=== PATIENT | female | born 1940 | race Caucasian/White ===

== ENCOUNTER 2018-02-13 18:43 | Inpatient (IN) ==
--- NOTE | 2018-02-13 20:20 | Emergency Department Note ---
Disposition Clinical Impression: Fall Qualifiers: Encounter type: initial encounter Qualified Code(s): W19.XXXA - Unspecified fall, initial encounter Right hand fracture Qualifiers: Encounter type: initial encounter Fracture type: closed Qualified Code(s): S62.91XA - Unspecified fracture of right wrist and hand, initial encounter for closed fracture Disposition: Admitted As Inpatient Condition: Fair Time of Disposition: 04:47 General Adult HPI - General Chief complaint: ED Fall Stated complaint: fall Time Seen by Provider: 02/13/18 19:48 Source: patient, family Mode of arrival: ambulatory Limitations: no limitations Nursing Notes Reviewed: Yes Vital Signs Reviewed: Yes - History of Present Illness HPI Narrative: Patient is a 77-year-old female with no pertinent past medical history brought in by her son for evaluation after a fall that occurred 10 days ago and concerns for memory issues. Son states that the fall occurred approximately 10 days ago and the patient woke up at 2:30 AM in the morning and walked to the first grader and and had a slip do dishes that were on the ground from being piled up. She fell down and injured her right elbow and right hand. She denies head or neck injury or loss of consciousness. Son states that his primary concerns were with her memory issues. He states that she seems disoriented in terms of time and year and becomes confused often. States that she wont attend her primary care physician visits to be worked up for her memory issues. Patient herself denies any headache, fevers, vision changes, neck pain, chest pain, shortness of breath, abdominal pain, nausea, vomiting, diarrhea, focal neurological deficits, urinary symptoms or rash. Pain Scale: 3 - Related Data Home Medications Medication Instructions Recorded Confirmed Unable To Obtain [Unable to Obtain] 02/13/18 02/13/18 Allergies Allergy/AdvReac Type Severity Reaction Status Date / Time No Known Allergies Allergy Verified 02/13/18 18:08 All systems ED: reviewed and negative except as stated. Review of Systems: As Per HPI Constitutional: Reports: fever, chills Past Medical History - Past Medical History Attestation: Yes The following information was validated with the patient. Medical history: Reports: no medical history Psychiatric history: Reports: no psych history - Social History Smoking Status: Current every day smoker Smokeless Tobacco Status: No Alcohol use: Reports: none Drug use: Reports: none Physical Exam CONSTITUTIONAL: Well-appearing; well-nourished; A&O X 2, in no apparent distress. Patient is pleasant she is sitting up in bed smiling. She answers my questions in full sentences admits when she does not recall or remember something. States he years 2012 in the month of April after both incorrect. She is mildly unkempt on exam with what appears to be dirt/grime over her chest and her hair appears frazzled she is mildly malodorous. HEAD: Normocephalic; atraumatic EYES: PERRL, no scleral icterus NOSE: The nose is normal in appearance without rhinorrhea NECK: No JVD or distended neck veins RESP: Normal chest excursion with respiration; breath sounds clear and equal bilaterally; no wheezes, rhonchi, or rales CARD: Regular rhythm, without murmurs, rub or gallop ABD: Non-distended; non-tender, soft, without rigidity, rebound or guarding,no pulsatile mass CHEST: No pain with palpation SKIN: Normal for age and race; warm and dry without diaphoresis ; no apparent lesions EXTREMITIES: Pulses are 2 plus and equal times 4 extremities, no peripheral edema or calf muscle pain NEUROLOGICAL: Patient is alert and oriented times three. Cranial nerves III- XII are intact. Sensory and motor functions are intact. Strength is 5/5 for flexion and extension in all 4 extremities. Patellar DTRS are equal and intact. Finger to nose testing is equal and normal bilaterally. - General General appearance: in no apparent distress Course Course Narrative: Plan at this time is to evaluate the patient for altered mental status which will include a head CT, cardiac workup and basic labs. We will also check plain films of the patient's right upper extremity to rule out acute fractures. If her lab work returns and is benign and she will receive a social work consult to evaluate the patient for safety at home and potential for placement into an ECF facility. - Reevaluation(s) Reevaluation #1: Discussed the patient's case with the hospitalist on-call and discussed bring the patient in for fall risk. She is also found to have a urinary tract infection in the emergency department. She will be started on IV ceftriaxone and urine culture was ordered. Also her head CT are pending otherwise her lab work shows a mild hypokalemia which will be replenished orally. I discussed this with the patient's family and the patient herself and they agree with this current plan. Time: 20:58 Vital Signs Temperature 98.1 F 02/13/18 19:13 Pulse Rate 92 02/13/18 19:13 Respiratory Rate 20 02/13/18 19:13 Blood Pressure 135/90 02/13/18 19:13 O2 Sat by Pulse Oximetry 97 02/13/18 19:13 Temperature 97.6 F 02/14/18 03:43 Pulse Rate 55 02/14/18 03:43 Respiratory Rate 14 02/14/18 03:43 Blood Pressure 122/73 02/14/18 03:43 O2 Sat by Pulse Oximetry 97 02/14/18 03:43 Oxygen Delivery Oxygen Delivery Room Air Medical Decision Making - Medical Records Medical records reviewed: Yes I reviewed the patient's medical records. - Lab Data Lab results reviewed: Yes I reviewed the patient's lab results. Result diagrams: 02/14/18 03:45 02/13/18 20:15 Lab Results 02/13/18 02/13/18 02/13/18 Range/Units 20:15 20:15 20:27 WBC 9.3 (4.3-11.1) K/mcL RBC 5.46 H (3.82-4.97) M/mcL Hgb 16.2 H (11.5-15.4) g/dL Hct 46.6 H (35.3-44.9) % MCV 85.3 (83.0-100.0) fL MCH 29.7 (28.0-33.3) pg MCHC 34.8 (31.6-35.5) g/dL RDW 12.9 (11.5-14.5) % Plt Count 282 (140-400) K/mcL MPV 10.0 (9.4-12.4) fL Immature Gran % 0.3 (0-4) % Seg Neutrophils % 56.0 % Lymphocytes % 34.6 % Monocytes % 7.8 % Eosinophils % 0.9 % Basophils % 0.4 % Neutrophils # 5.2 (1.6-8.9) K/mcL Lymphocytes # 3.2 (0.6-4.6) K/mcL Monocytes # 0.7 (0.0-1.3) K/mcL Eosinophils # 0.1 (0.0-0.6) K/mcL Basophils # 0.0 (0.0-0.2) K/mcL Sodium 138 (136-145) mEq/L Potassium 3.2 L (3.5-5.1) mEq/L Chloride 106 (98-107) mEq/L Carbon Dioxide 23 (23-29) mEq/L BUN 16 (8-23) mg/dL Creatinine 0.85 (0.60-1.20) mg/dL Est GFR ( Amer) > 60 (> 60) Est GFR (Non-Af Amer) > 60 (> 60) BUN/Creatinine Ratio 19 (6-26) Glucose 121 H (70-105) mg/dL POC Glucose 120 H (70-99) mg/dL Calculated Osmolality 288 (280-300) Calcium 10.4 H (8.6-10.3) mg/dL Total Bilirubin 0.9 (0.3-1.0) mg/dL Direct Bilirubin 0.2 (0.0-0.2) mg/dL Indirect Bilirubin 0.7 (0.0-1.2) mg/dL AST 11 L (13-39) Units/L ALT 8 (7-52) Units/L Alkaline Phosphatase 83 (34-104) Units/L Troponin I < 0.03 (< 0.04) ng/mL Serum Total Protein 7.0 (6.4-8.9) g/dL Albumin 4.3 (3.5-5.7) g/dL Globulin 2.7 (2.4-3.5) g/dL Albumin/Globulin Ratio 1.6 (1.1-2.2) Urine Color (Yellow) Urine Clarity (Clear) Urine pH (5.0-8.0) pH Units Ur Specific [place] (1.010-1.025) Urine Protein (Neg-Trace) mg/dL Urine Glucose (UA) (Normal) mg/dL Urine Ketones (Negative) mg/dL Urine Blood (Negative) Urine Nitrite (Negative) Urine Bilirubin (Negative) Urine Urobilinogen (Normal) mg/dL Ur Leukocyte Esterase (Negative) Urine Microscopic RBC (0-3) per hpf Urine Microscopic WBC (0-3) per hpf Ur Squamous Epith Cells (None-Few) per lpf Urine Bacteria (None-Few) per hpf Hyaline Casts (None-Few) per lpf Urine Yeast (None Seen) per hpf Ur Culture Indicated? (NO) Ethyl Alcohol < 10 (Less than 10) mg/dL 02/13/18 Range/Units 20:29 WBC (4.3-11.1) K/mcL RBC (3.82-4.97) M/mcL Hgb (11.5-15.4) g/dL Hct (35.3-44.9) % MCV (83.0-100.0) fL MCH (28.0-33.3) pg MCHC (31.6-35.5) g/dL RDW (11.5-14.5) % Plt Count (140-400) K/mcL MPV (9.4-12.4) fL Immature Gran % (0-4) % Seg Neutrophils % % Lymphocytes % % Monocytes % % Eosinophils % % Basophils % % Neutrophils # (1.6-8.9) K/mcL Lymphocytes # (0.6-4.6) K/mcL Monocytes # (0.0-1.3) K/mcL Eosinophils # (0.0-0.6) K/mcL Basophils # (0.0-0.2) K/mcL Sodium (136-145) mEq/L Potassium (3.5-5.1) mEq/L Chloride (98-107) mEq/L Carbon Dioxide (23-29) mEq/L BUN (8-23) mg/dL Creatinine (0.60-1.20) mg/dL Est GFR ( Amer) (> 60) Est GFR (Non-Af Amer) (> 60) BUN/Creatinine Ratio (6-26) Glucose (70-105) mg/dL POC Glucose (70-99) mg/dL Calculated Osmolality (280-300) Calcium (8.6-10.3) mg/dL Total Bilirubin (0.3-1.0) mg/dL Direct Bilirubin (0.0-0.2) mg/dL Indirect Bilirubin (0.0-1.2) mg/dL AST (13-39) Units/L ALT (7-52) Units/L Alkaline Phosphatase (34-104) Units/L Troponin I (< 0.04) ng/mL Serum Total Protein (6.4-8.9) g/dL Albumin (3.5-5.7) g/dL Globulin (2.4-3.5) g/dL Albumin/Globulin Ratio (1.1-2.2) Urine Color Dark Yellow (Yellow) Urine Clarity Cloudy A (Clear) Urine pH 6.0 (5.0-8.0) pH Units Ur Specific [place] 1.029 H (1.010-1.025) Urine Protein 30 H (Neg-Trace) mg/dL Urine Glucose (UA) 250 H (Normal) mg/dL Urine Ketones 80 H (Negative) mg/dL Urine Blood Negative (Negative) Urine Nitrite Positive A (Negative) Urine Bilirubin Small H (Negative) Urine Urobilinogen Normal (Normal) mg/dL Ur Leukocyte Esterase Small H (Negative) Urine Microscopic RBC 0-3 (0-3) per hpf Urine Microscopic WBC 30-50 H (0-3) per hpf Ur Squamous Epith Cells Many H (None-Few) per lpf Urine Bacteria Many H (None-Few) per hpf Hyaline Casts Moderate H (None-Few) per lpf Urine Yeast Moderate H (None Seen) per hpf Ur Culture Indicated? NO. A (NO) Ethyl Alcohol (Less than 10) mg/dL - Radiology Data Radiology results reviewed: Yes I reviewed the patient's radiology results. Chest X-Ray 02/13/18 20:13 IMPRESSION: No acute pulmonary process. D/ / Alvaro Boinlla / Alvaro Bonilla Interpreting Provider: Alvaro Bonilla Head CT 02/13/18 20:13 IMPRESSION: No acute intracranial abnormality. Chronic small vessel ischemic white matter disease. Mild nonspecific right mastoid opacification. D/ / 02/13/2018 21:05:41 Boni Simmons MD / palma Interpreting Provider: Boni Simmons MD Elbow X-Ray 02/13/18 20:15 IMPRESSION: 1. No injury to the elbow. 2. Minimally displaced fracture involving the 3rd metacarpal shaft. 3. Comminuted fracture involving the base of the 4th metacarpal bone right hand. D/ / Alvaro Bonilla / Alvaro Bonilla Interpreting Provider: Alvaro Bonilla Hand X-Ray 02/13/18 20:15 IMPRESSION: 1. No injury to the elbow. 2. Minimally displaced fracture involving the 3rd metacarpal shaft. 3. Comminuted fracture involving the base of the 4th metacarpal bone right hand. D/ / Alvaro Bonilla / Alvaro Bonilla Interpreting Provider: Alvaro Bonilla - EKG Data EKG #1 EKG attestation: Yes I reviewed and interpreted this EKG. EKG results narrative: EKG done at 20:28 shows sinus rhythm at a rate of [address] is 174, QRS day 4, QT is 297 and QTc is 421 is within normal limits. No signs of STI. Elevation, ST depression or new Q waves present. No signs of ischemia.
[2018-02-13 20:37] LABS: Basophils % 0.4 %; Eosinophils # 0.1 K/mcL (0.0-0.6); Eosinophils % 0.9 %; Hematocrit 46.6 % (35.3-44.9); Hemoglobin 16.2 g/dL (11.5-15.4); Immature Granulocytes % 0.3 % (0-4); Lymphocytes # 3.2 K/mcL (0.6-4.6); Lymphocytes % 34.6 %; Mean Corpuscular HGB Conc 34.8 g/dL (31.6-35.5); Mean Corpuscular Hemoglobin 29.7 pg (28.0-33.3); Mean Corpuscular Volume 85.3 fL (83.0-100.0); Monocytes # 0.7 K/mcL (0.0-1.3); Monocytes % 7.8 %; Neutrophils # 5.2 K/mcL (1.6-8.9); Platelet Count 282 K/mcL (140-400); Red Blood Count 5.46 M/mcL (3.82-4.97); Red Cell Distribution Width 12.9 % (11.5-14.5)
[2018-02-13 20:44] LABS: Bilirubin,Urine Small (Negative); Blood,Urine Negative (Negative); Clarity,Urine Cloudy (Clear); Color,Urine Dark Yellow (Yellow); Glucose,Urine (UA) 250 mg/dL (Normal); Ketones,Urine 80 mg/dL (Negative); Leukocyte Esterase,Urine Small (Negative); Nitrite,Urine Positive (Negative); Protein,Urine 30 mg/dL (Neg-Trace); Specific Gravity,Urine 1.029 (1.010-1.025); Urobilinogen,Urine Normal (Normal)
[2018-02-13 20:47] LABS: Bacteria,Urine Many per hpf (None-Few); Hyaline Casts,Urine Moderate per lpf (None-Few); Squamous Epithelial Cell,Urine Many per lpf (None-Few); WBC,Urine 30-50 per hpf (0-3)
[2018-02-13 20:52] LABS: Alanine Aminotransferase 8 Units/L (7-52); Albumin 4.3 g/dL (3.5-5.7); Albumin/Globulin Ratio 1.6 (1.1-2.2); Alkaline Phosphatase 83 Units/L (34-104); Aspartate Amino Transferase 11 Units/L (13-39); BUN/Creatinine Ratio 19 (6-26); Bilirubin,Direct 0.2 mg/dL (0.0-0.2); Bilirubin,Indirect 0.7 mg/dL (0.0-1.2); Bilirubin,Total 0.9 mg/dL (0.3-1.0); Blood Urea Nitrogen 16 mg/dL (8-23); Calcium 10.4 mg/dL (8.6-10.3); Carbon Dioxide 23 mEq/L (23-29); Chloride 106 mEq/L (98-107); Ethanol < 10 mg/dL (Less than 10); Globulin 2.7 g/dL (2.4-3.5); Glucose 121 mg/dL (70-105); Osmolality,Calculated 288 (280-300); Potassium 3.2 mEq/L (3.5-5.1); Sodium 138 mEq/L (136-145); Troponin I < 0.03 ng/mL (< 0.04); eGFR For African Americans > 60 (> 60); eGFR For Non-African Americans > 60 (> 60)
[2018-02-13] MEDS ORDERED: Potassium Chloride Elixir 20 MEQ/15 ML UDC PO ONE (20:56)
[2018-02-13] MEDS ORDERED: cefTRIAXone 1,000 MG in Water for inj. (sterile) 20 ML 10 ML IVP ONE (20:57)
[2018-02-13 21:00] LABS: RBC,Urine 0-3 per hpf (0-3); Yeast,Urine Moderate per hpf (None Seen)
--- NOTE | 2018-02-13 22:25 | Emergency Department Note ---
Disposition Clinical Impression: Fall Qualifiers: Encounter type: initial encounter Qualified Code(s): W19.XXXA - Unspecified fall, initial encounter Right hand fracture Qualifiers: Encounter type: initial encounter Fracture type: closed Qualified Code(s): S62.91XA - Unspecified fracture of right wrist and hand, initial encounter for closed fracture Disposition: Admitted As Inpatient Condition: Fair General Adult HPI - General Chief complaint: ED Fall Stated complaint: fall Time Seen by Provider: 02/13/18 19:48 Source: patient, family Mode of arrival: ambulatory Limitations: no limitations Nursing Notes Reviewed: Yes Vital Signs Reviewed: Yes - History of Present Illness Pain Scale: 3 - Related Data Home Medications Medication Instructions Recorded Confirmed Unable To Obtain [Unable to Obtain] 02/13/18 02/13/18 Allergies Allergy/AdvReac Type Severity Reaction Status Date / Time No Known Allergies Allergy Verified 02/13/18 18:08 Constitutional: Reports: fever, chills Past Medical History - Past Medical History Medical history: Reports: no medical history Psychiatric history: Reports: no psych history - Social History Smoking Status: Current every day smoker Smokeless Tobacco Status: No Alcohol use: Reports: none Drug use: Reports: none Physical Exam - General Limitations: no limitations General appearance: in no apparent distress Course Vital Signs Temperature 98.1 F 02/13/18 19:13 Pulse Rate 92 02/13/18 19:13 Respiratory Rate 20 02/13/18 19:13 Blood Pressure 135/90 02/13/18 19:13 O2 Sat by Pulse Oximetry 97 02/13/18 19:13 Temperature 97.6 F 02/14/18 03:43 Pulse Rate 55 02/14/18 03:43 Respiratory Rate 14 02/14/18 03:43 Blood Pressure 122/73 02/14/18 03:43 O2 Sat by Pulse Oximetry 97 02/14/18 03:43 Oxygen Delivery Oxygen Delivery Room Air Medical Decision Making - Lab Data Result diagrams: 02/14/18 03:45 02/14/18 03:45 Lab Results 02/13/18 02/13/18 02/13/18 Range/Units 20:15 20:15 20:27 WBC 9.3 (4.3-11.1) K/mcL RBC 5.46 H (3.82-4.97) M/mcL Hgb 16.2 H (11.5-15.4) g/dL Hct 46.6 H (35.3-44.9) % MCV 85.3 (83.0-100.0) fL MCH 29.7 (28.0-33.3) pg MCHC 34.8 (31.6-35.5) g/dL RDW 12.9 (11.5-14.5) % Plt Count 282 (140-400) K/mcL MPV 10.0 (9.4-12.4) fL Immature Gran % 0.3 (0-4) % Seg Neutrophils % 56.0 % Lymphocytes % 34.6 % Monocytes % 7.8 % Eosinophils % 0.9 % Basophils % 0.4 % Neutrophils # 5.2 (1.6-8.9) K/mcL Lymphocytes # 3.2 (0.6-4.6) K/mcL Monocytes # 0.7 (0.0-1.3) K/mcL Eosinophils # 0.1 (0.0-0.6) K/mcL Basophils # 0.0 (0.0-0.2) K/mcL Sodium 138 (136-145) mEq/L Potassium 3.2 L (3.5-5.1) mEq/L Chloride 106 (98-107) mEq/L Carbon Dioxide 23 (23-29) mEq/L BUN 16 (8-23) mg/dL Creatinine 0.85 (0.60-1.20) mg/dL Est GFR ( Amer) > 60 (> 60) Est GFR (Non-Af Amer) > 60 (> 60) BUN/Creatinine Ratio 19 (6-26) Glucose 121 H (70-105) mg/dL POC Glucose 120 H (70-99) mg/dL Calculated Osmolality 288 (280-300) Calcium 10.4 H (8.6-10.3) mg/dL Total Bilirubin 0.9 (0.3-1.0) mg/dL Direct Bilirubin 0.2 (0.0-0.2) mg/dL Indirect Bilirubin 0.7 (0.0-1.2) mg/dL AST 11 L (13-39) Units/L ALT 8 (7-52) Units/L Alkaline Phosphatase 83 (34-104) Units/L Troponin I < 0.03 (< 0.04) ng/mL Serum Total Protein 7.0 (6.4-8.9) g/dL Albumin 4.3 (3.5-5.7) g/dL Globulin 2.7 (2.4-3.5) g/dL Albumin/Globulin Ratio 1.6 (1.1-2.2) Urine Color (Yellow) Urine Clarity (Clear) Urine pH (5.0-8.0) pH Units Ur Specific [place] (1.010-1.025) Urine Protein (Neg-Trace) mg/dL Urine Glucose (UA) (Normal) mg/dL Urine Ketones (Negative) mg/dL Urine Blood (Negative) Urine Nitrite (Negative) Urine Bilirubin (Negative) Urine Urobilinogen (Normal) mg/dL Ur Leukocyte Esterase (Negative) Urine Microscopic RBC (0-3) per hpf Urine Microscopic WBC (0-3) per hpf Ur Squamous Epith Cells (None-Few) per lpf Urine Bacteria (None-Few) per hpf Hyaline Casts (None-Few) per lpf Urine Yeast (None Seen) per hpf Ur Culture Indicated? (NO) Ethyl Alcohol < 10 (Less than 10) mg/dL 02/13/18 Range/Units 20:29 WBC (4.3-11.1) K/mcL RBC (3.82-4.97) M/mcL Hgb (11.5-15.4) g/dL Hct (35.3-44.9) % MCV (83.0-100.0) fL MCH (28.0-33.3) pg MCHC (31.6-35.5) g/dL RDW (11.5-14.5) % Plt Count (140-400) K/mcL MPV (9.4-12.4) fL Immature Gran % (0-4) % Seg Neutrophils % % Lymphocytes % % Monocytes % % Eosinophils % % Basophils % % Neutrophils # (1.6-8.9) K/mcL Lymphocytes # (0.6-4.6) K/mcL Monocytes # (0.0-1.3) K/mcL Eosinophils # (0.0-0.6) K/mcL Basophils # (0.0-0.2) K/mcL Sodium (136-145) mEq/L Potassium (3.5-5.1) mEq/L Chloride (98-107) mEq/L Carbon Dioxide (23-29) mEq/L BUN (8-23) mg/dL Creatinine (0.60-1.20) mg/dL Est GFR ( Amer) (> 60) Est GFR (Non-Af Amer) (> 60) BUN/Creatinine Ratio (6-26) Glucose (70-105) mg/dL POC Glucose (70-99) mg/dL Calculated Osmolality (280-300) Calcium (8.6-10.3) mg/dL Total Bilirubin (0.3-1.0) mg/dL Direct Bilirubin (0.0-0.2) mg/dL Indirect Bilirubin (0.0-1.2) mg/dL AST (13-39) Units/L ALT (7-52) Units/L Alkaline Phosphatase (34-104) Units/L Troponin I (< 0.04) ng/mL Serum Total Protein (6.4-8.9) g/dL Albumin (3.5-5.7) g/dL Globulin (2.4-3.5) g/dL Albumin/Globulin Ratio (1.1-2.2) Urine Color Dark Yellow (Yellow) Urine Clarity Cloudy A (Clear) Urine pH 6.0 (5.0-8.0) pH Units Ur Specific [place] 1.029 H (1.010-1.025) Urine Protein 30 H (Neg-Trace) mg/dL Urine Glucose (UA) 250 H (Normal) mg/dL Urine Ketones 80 H (Negative) mg/dL Urine Blood Negative (Negative) Urine Nitrite Positive A (Negative) Urine Bilirubin Small H (Negative) Urine Urobilinogen Normal (Normal) mg/dL Ur Leukocyte Esterase Small H (Negative) Urine Microscopic RBC 0-3 (0-3) per hpf Urine Microscopic WBC 30-50 H (0-3) per hpf Ur Squamous Epith Cells Many H (None-Few) per lpf Urine Bacteria Many H (None-Few) per hpf Hyaline Casts Moderate H (None-Few) per lpf Urine Yeast Moderate H (None Seen) per hpf Ur Culture Indicated? NO. A (NO) Ethyl Alcohol (Less than 10) mg/dL Attestation Statement - Attestation Attestation: I, Darnell Weber MD, personally evaluated this patient and discussed their management with the resident physician. I reviewed the resident's note and agree with the documented findings, medical decision making, and plan of care. 77-year-old female presents to the emergency department accompanied by her son who complains that the patient has had 2 or 3 falls over the past 3 weeks. Patient's son does live with her however he is a local company refrigerated truck driver and is gone from home a lot and when he is working she is home alone. She fell approximately 10 days ago and injured her right hand and right elbow. He also reports that the patient has confusion which has been getting progressively worse over the past year. On examination patient is a well-developed well-nourished elderly female in no acute distress. She appears dirty and unkempt. She is alert but oriented to person only. There is no cyanosis or diaphoresis. Head is atraumatic. Neck is supple and nontender. Chest is nontender to palpation. Breath sounds are decreased but equal bilaterally. Heart regular. Abdomen soft and nontender with normal bowel sounds. Patient has a small crusted abrasion to the elbow. There is some swelling and ecchymosis of the right hand and fingers. X-ray of the right elbow was negative. X-ray of the right hand shows fractures of the third and fourth metacarpals. Chest x-ray negative. Head CT negative. Labs reviewed. Patient does have a UTI and also hypokalemia with a potassium of 3.2. EKG shows a normal sinus rhythm with ventricular rate is 72. Minimal ST depression in V2 through V5. No ST elevation. No ectopy. Patient received IV Rocephin for the UTI. She also received potassium. A splint applied to the right hand. Dr. King discussed with the orthopedist process control programmer, Dr. Holt. The hospitalist, Dr. Morrell, was consulted and accepted admission of the patient.
--- NOTE | 2018-02-13 23:24 | Internal Med History&Physical ---
Date of Encounter: 02/13/18 Time of Encounter: 23:24 Internal Medicine - H&P: HPI Chief complaint: Status History of present illness: Ms. Lee is a 77 year old female with no pertinent past medical history brought in by her son for evaluation after a fall that occurred 10 days ago and concerns for memory loss. Son is a tire trucker and he is in bedside , he stated that for the last year he noted that his mother start having issues with memory , he also stated that she for 10 days ago and he believes that she injured her right elbow on right hand. At bedside the patient was not oriented to place or time and person. She was evaluated by the ER staff and imaging studies revealed Minimally displaced fracture involving the 3rd metacarpal shaft , Comminuted fracture involving the base of the 4th metacarpal bone right hand. She was admitted for further evaluation and management and possible placement. Past Med Surg Social Fam HX - Past Medical History Medical history: no medical history Psychiatric history: no psych history - Social History Smoking Status: Current every day smoker Smokeless Tobacco Status: No Alcohol use: none Drug use: none - Family History Mother Living Status: Hx Family Psychosocial Disorders: Yes (Dementia) Internal Medicine - H&P: Meds Unable To Obtain [Unable to Obtain] 02/13/18 [History] 3 Allergy/AdvReac Type Severity Reaction Status Date / Time No Known Allergies Allergy Verified 02/13/18 18:08 All Systems PM: A 10-system review of systems was performed and is negative for pertinent findings except as documented above in the HPI. - Constitutional Vitals: Temp Pulse Resp BP Pulse Ox 98.1 F 75 18 119/76 98 02/13/18 19:13 02/13/18 21:30 02/13/18 22:49 02/13/18 22:49 02/13/18 21:30 Internal Med - H&P Results - Labs CBC & Chem 7: 02/14/18 03:45 02/14/18 03:45 - Assessment and plan (1) Right hand fracture Current Visit: Yes Status: Acute Assessment and plan: Minimally displaced fracture involving the 3rd metacarpal shaft and Comminuted fracture involving the base of the 4th metacarpal bone right hand was noted, surgery was consulted for further evaluation Qualifiers: Encounter type: initial encounter Fracture type: closed Qualified Code(s) : S62.91XA - Unspecified fracture of right wrist and hand, initial encounter for closed fracture (2) Dementia Current Visit: Yes Status: Acute Assessment and plan: We will consult neurology for further evaluation and management and consult social service assistant for possible placement (3) DVT prophylaxis Current Visit: Yes Status: Acute Assessment and plan: SCDs - Time Spent With Patient Total time spent is greater than 50% in coordination of care (as documented) at patient's floor/unit and/or counseling patient:
[2018-02-14] MEDS ORDERED: Naloxone 0.4 MG/ML INJ IVP PRN (03:14)
[2018-02-14] MEDS ORDERED: *HR* HYDROcodone/Acet 5/325 mg TABLET PO PRN (03:14)
[2018-02-14] MEDS ORDERED: Acetaminophen 325 MG TABLET PO PRN (03:14)
[2018-02-14 04:26] LABS: Basophils % 0.5 %; Eosinophils # 0.2 K/mcL (0.0-0.6); Eosinophils % 1.8 %; Hematocrit 41.4 % (35.3-44.9); Immature Granulocytes % 0.3 % (0-4); Lymphocytes # 3.6 K/mcL (0.6-4.6); Lymphocytes % 42.1 %; Mean Corpuscular HGB Conc 34.3 g/dL (31.6-35.5); Mean Corpuscular Hemoglobin 29.3 pg (28.0-33.3); Mean Corpuscular Volume 85.4 fL (83.0-100.0); Mean Platelet Volume 10.2 fL (9.4-12.4); Monocytes # 0.8 K/mcL (0.0-1.3); Monocytes % 8.9 %; Platelet Count 240 K/mcL (140-400); Red Blood Count 4.85 M/mcL (3.82-4.97); Red Cell Distribution Width 12.8 % (11.5-14.5); Segmented Neutrophils % 46.4 %
[2018-02-14 04:28] LABS: Hemoglobin 14.2 g/dL (11.5-15.4)
[2018-02-14 04:33] LABS: INR 1.3; Prothrombin Time 14.1 Seconds (9.4-12.1)
[2018-02-14 04:36] LABS: Activated Partial Thrombo Time 38.2 Seconds (26.0-36.0)
[2018-02-14 04:52] LABS: Alanine Aminotransferase 6 Units/L (7-52); Albumin 3.7 g/dL (3.5-5.7); Albumin/Globulin Ratio 1.7 (1.1-2.2); Alkaline Phosphatase 70 Units/L (34-104); Aspartate Amino Transferase 9 Units/L (13-39); BUN/Creatinine Ratio 24 (6-26); Bilirubin,Total 0.7 mg/dL (0.3-1.0); Blood Urea Nitrogen 15 mg/dL (8-23); Calcium 9.7 mg/dL (8.6-10.3); Carbon Dioxide 23 mEq/L (23-29); Chloride 108 mEq/L (98-107); Chol/HDL Ratio 6.3 (0-4.9); Cholesterol 196 mg/dL (< 200); Globulin 2.2 g/dL (2.4-3.5); Glucose 117 mg/dL (70-105); HDL Cholesterol 31 mg/dL (40-59); LDL Cholesterol,Calculated 148 mg/dL (0-99); Magnesium 1.8 mg/dL (1.6-2.6); Osmolality,Calculated 292 (280-300); Phosphorous 2.4 mg/dL (2.7-4.5); Potassium 3.4 mEq/L (3.5-5.1); Sodium 140 mEq/L (136-145); Total Protein 5.9 g/dL (6.4-8.9); Triglycerides 86 mg/dL (< 150); eGFR For African Americans > 60 (> 60); eGFR For Non-African Americans > 60 (> 60)
--- NOTE | 2018-02-14 06:40 | Electrocardiograph Report ---
[address] [place] [address] Test Date: 2018-02-13 Pat Name: Alexa Lee Department: 103 Room: 3B11 Gender: F Technical Communicator: : 1940 Requested By: Avery King Order Number: [id number] Reading MD: Daniel Hare Measurements Intervals [place] Rate: 72 P: 60 UT: 174 QRS: -10 QRSD: 84 T: 31 QT: 397 QTc: 421 Interpretive Statements SINUS RHYTHM Electronically Signed On 02-14-2018 6:39:10 EDT by Daniel Hare
--- NOTE | 2018-02-14 09:17 | Internal Med Progress Note ---
Date of Encounter: 02/14/18 Time of Encounter: 09:09 - Assessment and plan (1) Right hand fracture Current Visit: Yes Status: Acute Assessment and plan: Minimally displaced fracture involving the 3rd metacarpal shaft and Comminuted fracture involving the base of the 4th metacarpal bone right hand was noted, surgery was consulted for further evaluation Hand is splinted Qualifiers: Encounter type: initial encounter Fracture type: closed Qualified Code(s) : S62.91XA - Unspecified fracture of right wrist and hand, initial encounter for closed fracture (2) Dementia Current Visit: Yes Status: Acute Assessment and plan: 1 according to family patient has been experiencing memory loss for the past year however in the past week she has become much more confused. Presently patient is oriented to self only she has some difficulty following simple commands she did injure her hand from a reported fall. CT of head was negative , a choice are okay we will check thiamine folate and B12 Neurology has been consulted Falls precautions-PTOT evaluation Suspicious for UTI continue Rocephin-pending culture Qualifiers: Dementia type: unspecified type Dementia behavioral disturbance: without behavioral disturbance Qualified Code(s): F03.90 - Unspecified dementia without behavioral disturbance (3) Fall Current Visit: Yes Status: Acute Assessment and plan: 1 patient had an unwitnessed fall approximately 10 days ago she has a minimally displaced fracture involving the third metacarpal Fall precautions PT OT evaluation Qualifiers: Encounter type: initial encounter Qualified Code(s): W19.XXXA - Unspecified fall, initial encounter (4) UTI (urinary tract infection) Current Visit: Yes Status: Acute Assessment and plan: Analysis does show positive nitrates as well as leukocyte esterase and bacteria however suspect this is contaminated. Continue Rocephin until urine culture is verified-urine sent for culture per ED No white count we will continue to monitor Qualifiers: Urinary tract infection type: site unspecified Hematuria presence: without hematuria Qualified Code(s): N39.0 - Urinary tract infection, site not specified (5) DVT prophylaxis Current Visit: Yes Status: Acute Assessment and plan: SCDs - Time Spent With Patient Total time spent is greater than 50% in coordination of care (as documented) at patient's floor/unit and/or counseling patient: - Subjective Interval history: Patient was seen and examined at bedside. Her boyfriend is at bedside, he states that patient has been progressively more forgetful over the past year, however this past week she has been confused. Presently the patient is oriented to name only, she does have dome difficulty following simple commands and at times needs to be prompted . She denies any pain or discomfort - Constitutional Vitals: Temp Pulse Resp BP Pulse Ox 98.8 F 51 14 129/72 96 02/14/18 07:13 02/14/18 07:13 02/14/18 07:13 02/14/18 07:13 02/14/18 07:13 General appearance: Present: A&O X 1 - Head Head exam: Present: atraumatic, normocephalic - Eye Eye exam: Present: PERRL, conjuntiva pink, sclera anicteric Pupils: Present: PERRL - Neck Neck exam general surgery: Present: supple, trachea midline. Absent: lymphadenopathy - Respiratory Respiratory exam: Present: CTAB. Absent: accessory muscle use, rales, rhonchi, wheezes - Cardiovascular Cardiovascular exam: Present: RRR, +S1, +S2. Absent: diastolic murmur, gallop, rubs, systolic murmur - GI/Abdominal GI/Abdominal exam: Present: normal bowel sounds, soft, no peritoneal signs. Absent: distended, tenderness - Extremities Exam Extremities exam: Present: warm, radial pulses palpable and symmetrical. Absent : calf tenderness, cyanotic, pedal edema - Neurological Exam Neurological exam: Present: CN II-XII intact, oriented X3, no focal deficits. Absent: pronater drift, facial droop, speech deficit - Skin Skin exam: Present: dry, intact Internal Medicine: Result - Labs CBC & Chem 7: 02/14/18 03:45 02/14/18 03:45 Labs: Short CBC 02/14/18 Range/Units 03:45 WBC 8.7 (4.3-11.1) K/mcL Hgb 14.2 D (11.5-15.4) g/dL Hct 41.4 (35.3-44.9) % Plt Count 240 (140-400) K/mcL Neutrophils # 4.0 (1.6-8.9) K/mcL BMP 02/14/18 03:45 Sodium 140 Potassium 3.4 L Chloride 108 H Carbon Dioxide 23 BUN 15 Creatinine 0.62 Glucose 117 H Calcium 9.7 Liver Function 02/14/18 Range/Units 03:45 Total Bilirubin 0.7 (0.3-1.0) mg/dL AST 9 L (13-39) Units/L ALT 6 L (7-52) Units/L Alkaline Phosphatase 70 (34-104) Units/L Albumin 3.7 (3.5-5.7) g/dL - ABG Interpretation ABG results: PT/INR, D-dimer PT 14.1 Seconds (9.4-12.1) H 02/14/18 03:45 Consult Discharge Plan - Plan Referrals: Maia Rios MD [Primary Care Provider] -
[2018-02-14] MEDS ORDERED: Aspirin 325 MG TABLET PO ONE (14:31)
[2018-02-14] MEDS: cefTRIAXone 1,000 MG in Water for inj. (sterile) 20 ML 10 ML IVP SCH (15:00)
--- NOTE | 2018-02-14 15:03 | Neurology - Consult Note ---
Date of Encounter: 02/14/18 Time of Encounter: 14:57 Assessment and Plan (1) CVA (cerebral vascular accident) Current Visit: Yes Status: Acute 77 year old woman with HTN, history of DE who developed acute onset mental status changes, with speech difficulty complicating mental function, with evidence of acute to subacute infarct, likely occurred within the last few days , involving the left parietal and posterior temporal region. This likely is contributing her mental status changes and speech difficulty. THe cause appears to be small vessel lacunar or thromboembolic since the lesion is relatively large for typical lacunar infarct and it was close to cerebral cortex. Agree with starting Aspirin 81mg daily. Lipid panel and statin therapy if indicated. Await carotid artery duplex, and echocardiography. Recommend cardiology consult for possible passenger service supervisor rhythm monitoring. Qualifiers: CVA mechanism: unspecified Qualified Code(s): I63.9 - Cerebral infarction, unspecified History of Present Illness Chief complaint: fall and mental status changes HPI: Ms. Lee is a 77 year old female woman with PMH significant for HTN, history of DE and cognitive impairment who presented with a fall and right wrist fracture. Family member also noticed over the last few days to a week she has been having subacute onset of memory difficulty. Family members relates that in the last 1-2 years she has been having memory issues, asking questions repetitively, and intermittent confusion and memory loss but it seems worsened in the last few days. Last night she had a fall and injured her right wrist. Found to have right wrist fracture. At the time of this interview, MRI of brain showed presence of subacute to acute infarct at the left Past Med Surg Social Fam HX - Past Medical History Medical history: no medical history Psychiatric history: no psych history - Past Surgical History Surgical History: no surgical history - Social History Smoking Status: Current every day smoker Packs per day: 0.2 ppd Smokeless Tobacco Status: No Alcohol use: none Drug use: none - Family History Mother Living Status: Hx Family Psychosocial Disorders: Yes (Dementia) Medications and Allergies Unable To Obtain [Unable to Obtain] 02/13/18 [History] 3 Allergy/AdvReac Type Severity Reaction Status Date / Time No Known Allergies Allergy Verified 02/13/18 18:08 All Systems: The remainder of the systems were reviewed and are negative Physical Examination - Vital Signs Vital Signs: Initial Vital Signs Temp Pulse Resp BP Pulse Ox 98.1 F 92 20 135/90 97 02/13/18 19:13 02/13/18 19:13 02/13/18 19:13 02/13/18 19:13 02/13/18 19:13 - Constitutional General appearance: comfortable - Neurologic Sensorimotor examination: intact (Grossly intact) Detailed motor examination: grossly full strength in all extremities (Right wrist splint noted. ) Motor examination - right side: 5/5: deltoids, biceps, triceps, hip flexors, tibialis Anterior, quadriceps, toe extension (EHL), plantarflexion Motor examination - left side: 5/5: deltoids, biceps, triceps, wrist flexion, wrist extension, hip flexors, pit slagman, quadriceps, tibialis Anterior, toe extension (EHL), plantarflexion Detailed sensory examination: intact (Grossly intact) Posture: other (None) Reflexes: Biceps: 1+, Triceps: 1+, Brachioradialis: 1+, Patella: 1+, Achilles: 1 + Mental Status Examination: awake, alert, oriented to person (Disoriented to time and place. Able to repeat), follows commands appropriately, answers questions appropriately, lucid, opens eyes to voice, makes eye contact, follows simple commands Cranial nerve examination: PERRL, EOMI, visual leyva intact, corneal reflexes brisk symmetrically, sensory to face intact, mastication intact, no facial asymmetry is present, no dysarthria, hearing is intact symmetrically, soft palate elevates bilaterally upon phonation, gag reflex intact, flexes SCM and trapezius muscles symmetrically with full power, tongue protrudes midline, no atrophy or facial fasiculations present Results - Laboratory Findings CBC and BMP: 02/14/18 03:45 02/14/18 03:45 Abnormal lab findings: Abnormal lab results PT 14.1 Seconds (9.4-12.1) H 02/14/18 03:45 APTT 38.2 Seconds (26.0-36.0) H 02/14/18 03:45 Potassium 3.4 mEq/L (3.5-5.1) L 02/14/18 03:45 Chloride 108 mEq/L (98-107) H 02/14/18 03:45 Glucose 117 mg/dL (70-105) H 02/14/18 03:45 POC Glucose 120 mg/dL (70-99) H 02/13/18 20:27 Phosphorus 2.4 mg/dL (2.7-4.5) L 02/14/18 03:45 AST 9 Units/L (13-39) L 02/14/18 03:45 ALT 6 Units/L (7-52) L 02/14/18 03:45 Serum Total Protein 5.9 g/dL (6.4-8.9) L 02/14/18 03:45 Globulin 2.2 g/dL (2.4-3.5) L 02/14/18 03:45 LDL Cholesterol, Calc 148 mg/dL (0-99) H 02/14/18 03:45 HDL Cholesterol 31 mg/dL (40-59) L 02/14/18 03:45 Cholesterol/HDL Ratio 6.3 (0-4.9) H 02/14/18 03:45 Urine Clarity Cloudy (Clear) A 02/13/18 20:29 Ur Specific [place] 1.029 (1.010-1.025) H 02/13/18 20:29 Urine Protein 30 mg/dL (Neg-Trace) H 02/13/18 20:29 Urine Glucose (UA) 250 mg/dL (Normal) H 02/13/18 20:29 Urine Ketones 80 mg/dL (Negative) H 02/13/18 20:29 Urine Nitrite Positive (Negative) A 02/13/18 20:29 Urine Bilirubin Small (Negative) H 02/13/18 20:29 Ur Leukocyte Esterase Small (Negative) H 02/13/18 20:29 Urine Microscopic WBC 30-50 per hpf (0-3) H 02/13/18 20:29 Ur Squamous Epith Cells Many per lpf (None-Few) H 02/13/18 20:29 Urine Bacteria Many per hpf (None-Few) H 02/13/18 20:29 Hyaline Casts Moderate per lpf (None-Few) H 02/13/18 20:29 Urine Yeast Moderate per hpf (None Seen) H 02/13/18 20:29 Ur Culture Indicated? NO. (NO) A 02/13/18 20:29 - Diagnostic Findings Additional findings: MRI OF THE BRAIN WITHOUT CONTRAST 02/14/2018 1:55 pm TECHNIQUE: Multiplanar multisequence MRI of the brain was performed without the administration of intravenous contrast. COMPARISON: CT head on 02/13/2018. MRI brain on 06/29/2012. HISTORY: ORDERING SYSTEM PROVIDED HISTORY: confusion FINDINGS: Examination is severely motion compromised. INTRACRANIAL STRUCTURES/VENTRICLES: There is a restricted diffusion within the left centrum semiovale extending towards the left temporal lobe subcortical white matter and left temporal lobe cortex. Moderate amount of nonspecific T2 hyperintense white matter lesions, which are most often attributed to chronic small vessel ischemic white matter disease. Prominence of ventricles and sulci is compatible with cerebral volume loss. No evidence of midline shift. The basal cisterns are patent. ORBITS: The visualized portion of the orbits demonstrate no acute abnormality. SINUSES: The visualized paranasal sinuses and mastoid air cells are well aerated. BONES/SOFT TISSUES: The bone marrow signal intensity appears normal. The soft tissues demonstrate no acute abnormality. MR/MR head/brain wo con IMPRESSION: 1. Acute to subacute infarct within the left centrum semiovale extending towards the left temporal subcortical white matter and left temporal cortex. 2. No evidence of intracranial hemorrhage. 3. Chronic small vessel ischemic white matter disease and diffuse cerebral volume loss. The findings were sent to the Radiology Results Communication Centerto be communicated to a licensed caregiver. D/ / 02/14/2018 14:24:28 Boni Simmons MD / palma Interpreting Provider: Boni Simmons MD Consult Discharge Plan - Plan Referrals: Maia Rios MD [Primary Care Provider] -
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
[2018-02-14] MEDS ORDERED: *HR* LORazepam 2 MG/ML VIAL IVP ONE (22:31)
[2018-02-14] MEDS ORDERED: diazePAM 10 MG/2 ML SYRINGE IVP ONE (23:27)
[2018-02-15 05:14] LABS: Eosinophils % 1.4 %; Hematocrit 42.2 % (35.3-44.9); Hemoglobin 14.6 g/dL (11.5-15.4); Immature Granulocytes % 0.2 % (0-4); Lymphocytes % 34.7 %; Mean Corpuscular HGB Conc 34.6 g/dL (31.6-35.5); Mean Corpuscular Hemoglobin 29.4 pg (28.0-33.3); Mean Corpuscular Volume 84.9 fL (83.0-100.0); Mean Platelet Volume 10.2 fL (9.4-12.4); Monocytes % 8.3 %; Platelet Count 242 K/mcL (140-400); Red Blood Count 4.97 M/mcL (3.82-4.97); Red Cell Distribution Width 12.7 % (11.5-14.5); Segmented Neutrophils % 54.9 %
[2018-02-15 05:15] LABS: Basophils % 0.5 %; Eosinophils # 0.1 K/mcL (0.0-0.6); Lymphocytes # 2.8 K/mcL (0.6-4.6); Monocytes # 0.7 K/mcL (0.0-1.3); Neutrophils # 4.5 K/mcL (1.6-8.9)
[2018-02-15 05:30] LABS: Chol/HDL Ratio 6.1 (0-4.9)
[2018-02-15 05:31] LABS: BUN/Creatinine Ratio 17 (6-26); Blood Urea Nitrogen 12 mg/dL (8-23); Calcium 9.5 mg/dL (8.6-10.3); Carbon Dioxide 26 mEq/L (23-29); Chloride 107 mEq/L (98-107); Glucose 178 mg/dL (70-105); Osmolality,Calculated 294 (280-300); Potassium 3.1 mEq/L (3.5-5.1); Sodium 140 mEq/L (136-145); eGFR For African Americans > 60 (> 60); eGFR For Non-African Americans > 60 (> 60)
[2018-02-15 05:56] LABS: Folate 8.6 ng/mL (3.0-16.0)
[2018-02-15] MEDS ORDERED: Potassium Chloride 40 MEQ, Lidocaine 1% 2 ML in D5% in Water 500 ML IVPB ONE (07:43)
[2018-02-15] MEDS: Aspirin 81 MG TAB.CHEW PO SCH (09:44)
--- NOTE | 2018-02-15 09:44 | Neurology Progress Note ---
Date of Encounter: 02/15/18 Time of Encounter: 09:44 Assessment and Plan (1) CVA (cerebral vascular accident) Current Visit: Yes Status: Acute 77 year old woman with HTN, history of [place] who developed acute onset mental status changes, with speech difficulty complicating mental function, with evidence of acute to subacute infarct, likely occurred within the last few days , involving the left parietal and posterior temporal region. This likely is contributing her mental status changes and speech difficulty. THe cause appears to be small vessel lacunar or thromboembolic since the lesion is relatively large for typical lacunar infarct and it was close to cerebral cortex. Agree with starting Aspirin 81mg daily. Continue statin therapy. Await echocardiography. Recommend cardiology consult for possible terminal supervisor rhythm monitoring. Qualifiers: CVA mechanism: unspecified Qualified Code(s): I63.9 - Cerebral infarction, unspecified Subjective Principal diagnosis: CVA Interval history: Patient seen and examined. She is feeling fine, no specific neurological discomforts. No obvious focal deficits seen. She is able to walk with no difficulty. carotid artery duplex showed nonstenotic plaques bilaterally. Objective - Constitutional Vitals: Temp Pulse Resp BP Pulse Ox 97.0 F L 52 22 133/73 96 02/15/18 08:15 02/15/18 08:15 02/15/18 08:15 02/15/18 08:15 02/15/18 08:15 - Neurological Exam Motor Examination: Present: grossly full strength in all extremities (Right wrist splint noted. ) Motor examination - right side: 5/5: deltoids, biceps, triceps, hip flexors, tibialis Anterior, quadriceps, toe extension (EHL), plantarflexion Motor examination - left side: 5/5: deltoids, biceps, triceps, wrist flexion, wrist extension, hip flexors, slip filler, quadriceps, tibialis Anterior, toe extension (EHL), plantarflexion Sensation intact: Present: intact (Grossly intact) Posture: Present: other (None) Mental Status Examination: Present: awake, alert, oriented to person ( Disoriented to time and place. Able to repeat), follows commands appropriately, answers questions appropriately, no agnosia, no aphasia, no aproxia, lucid Cranial nerve examination: Present: PERRL, EOMI, visual leyva intact, corneal reflexes brisk symmetrically, sensory to face intact, mastication intact, no facial asymmetry is present, no dysarthria, hearing is intact symmetrically, soft palate elevates bilaterally upon phonation, gag reflex intact, flexes SCM and trapezius muscles symmetrically with full power, tongue protrudes midline, no atrophy or facial fasiculations present Results - Laboratory Findings CBC and BMP: 02/15/18 03:57 02/15/18 03:57 Abnormal lab findings: Abnormal lab results PT 14.1 Seconds (9.4-12.1) H 02/14/18 03:45 APTT 38.2 Seconds (26.0-36.0) H 02/14/18 03:45 Potassium 3.1 mEq/L (3.5-5.1) L 02/15/18 03:57 Glucose 178 mg/dL (70-105) H 02/15/18 03:57 POC Glucose 120 mg/dL (70-99) H 02/13/18 20:27 Phosphorus 2.5 mg/dL (2.7-4.5) L 02/15/18 03:57 AST 9 Units/L (13-39) L 02/14/18 03:45 ALT 6 Units/L (7-52) L 02/14/18 03:45 Serum Total Protein 5.9 g/dL (6.4-8.9) L 02/14/18 03:45 Globulin 2.2 g/dL (2.4-3.5) L 02/14/18 03:45 Cholesterol 207 mg/dL (< 200) H 02/15/18 03:57 LDL Cholesterol, Calc 150 mg/dL (0-99) H 02/15/18 03:57 HDL Cholesterol 34 mg/dL (40-59) L 02/15/18 03:57 Cholesterol/HDL Ratio 6.1 (0-4.9) H 02/15/18 03:57 Urine Clarity Cloudy (Clear) A 02/13/18 20:29 Ur Specific [place] 1.029 (1.010-1.025) H 02/13/18 20:29 Urine Protein 30 mg/dL (Neg-Trace) H 02/13/18 20:29 Urine Glucose (UA) 250 mg/dL (Normal) H 02/13/18 20:29 Urine Ketones 80 mg/dL (Negative) H 02/13/18 20:29 Urine Nitrite Positive (Negative) A 02/13/18 20:29 Urine Bilirubin Small (Negative) H 02/13/18 20:29 Ur Leukocyte Esterase Small (Negative) H 02/13/18 20:29 Urine Microscopic WBC 30-50 per hpf (0-3) H 02/13/18 20:29 Ur Squamous Epith Cells Many per lpf (None-Few) H 02/13/18 20:29 Urine Bacteria Many per hpf (None-Few) H 02/13/18 20:29 Hyaline Casts Moderate per lpf (None-Few) H 02/13/18 20:29 Urine Yeast Moderate per hpf (None Seen) H 02/13/18 20:29 Ur Culture Indicated? NO. (NO) A 02/13/18 20:29 - Diagnostic Findings Additional findings: Carotid Duplex Patient Name: Alexa Lee Order Number: [id number] Procedure Date: 02/14/2018 Date: 1940 Age: 77 yrs Gender: Female Lt BP: 114 / 66 mmHg Rt.BP: 114 / 66 mmHg Heart Rate: Location: [facility] Room #: 3B11 Oceanographic Meteorologist: Monet Jamison, PAWEL, RVT Referring MD: Krerie Ramirez MD Reading MD: Zachary Boucher MD Primary Indications: Transient Ishemic Attack Risk Factors Yes/No Smoking Current Yes Hypertension No Diabetes No Hypercholesterolemia No Hx of TIA No Impressions: Findings: Bilateral carotid system has nonstenotic plaque. Recommendations: After imaging the patient returned to their room. Preliminary documented in patient EMR. Findings Carotid Duplex: Right: There is nonstenotic plaque in the right proximal common carotid artery with a PSV of 85 cm/s and a EDV of 21 cm/s. There is smooth heterogeneous plaque. There is nonstenotic plaque in the right mid common carotid artery with a PSV of 75 cm/s and a EDV of 16 cm/s. There is smooth heterogeneous plaque. There is nonstenotic plaque in the right distal common carotid artery with a PSV of 73 cm/s and a EDV of 18 cm/s. There is smooth heterogeneous plaque. There is nonstenotic plaque in the right bifurcation with a PSV of 52 cm/s and a EDV of 16 cm/s. There is smooth heterogeneous plaque. The right proximal internal carotid artery has a PSV of 66 cm/s and a EDV of 24 cm/s. The right mid internal carotid artery has a PSV of 73 cm/s and a EDV of 19 cm/s. The right distal internal carotid artery has a PSV of 92 cm/s and a EDV of 34 cm/s. The right eca has a PSV of 96 cm/s and a EDV of 12 cm/s. The right vertebral artery has a PSV of 60 cm/s and a EDV of 13 cm/s. Left: There is nonstenotic plaque in the left proximal common carotid artery with a PSV of 86 cm/s and a EDV of 19 cm/s. There is smooth heterogeneous plaque. There is nonstenotic plaque in the left mid common carotid artery with a PSV of 73 cm/s and a EDV of 17 cm/s. There is smooth heterogeneous plaque. There is nonstenotic plaque in the left distal common carotid artery with a PSV of 73 cm/s and a EDV of 21 cm/s. There is smooth heterogeneous plaque. There is nonstenotic plaque in the left bifurcation with a PSV of 66 cm/s and a EDV of 17 cm/s. There is smooth heterogeneous plaque. The left proximal internal carotid artery has a PSV of 54 cm/s and a EDV of 15 cm/s. The left mid internal carotid artery has a PSV of 82 cm/s and a EDV of 27 cm/s. The left distal internal carotid artery has a PSV of 86 cm/s and a EDV of 27 cm/s. The left eca has a PSV of 93 cm/s and a EDV of 12 cm/s. The left vertebral artery has a PSV of 50 cm/s and a EDV of 16 cm/s. Prior Study: No prior study available for comparison. After imaging the patient returned to their room. Preliminary documented in patient EMR. Carotid Results Right PSV EDV Assessment Proximal CCA 85 21 Non Stenotic Plaque Mid CCA 75 16 Non Stenotic Plaque Distal CCA 73 18 Non Stenotic Plaque Bifurcation 52 16 Non Stenotic Plaque Proximal ICA 66 24 Normal Mid ICA 73 19 Normal Distal ICA 92 34 Normal ECA 96 12 Normal Vertebral Artery 60 13 Normal Left PSV EDV Assessment Proximal CCA 86 19 Non Stenotic Plaque Mid CCA 73 17 Non Stenotic Plaque Distal CCA 73 21 Non Stenotic Plaque Bifurcation 66 17 Non Stenotic Plaque Proximal ICA 54 15 Normal Mid ICA 82 27 Normal Distal ICA 86 27 Normal ECA 93 12 Normal Vertebral Artery 50 16 Normal Ratio's Right ICA/CCA Ratio: 1.23 ICA/CCA Values: 92/75 Left ICA/CCA Ratio: 1.18 ICA/CCA Values: 86/73 Updated by Zachary Boucher MD on 02/15/2018 8:02:07 AM electronically signed on 02/15/2018 8:02:55 AM with status of Final Consult Discharge Plan - Plan Referrals: Maia Rios MD [Primary Care Provider] - Alejandro Day MD [Partnered Physician] - 02/22/18 8:50 am
[2018-02-15] MEDS: cefTRIAXone 1,000 MG in Water for inj. (sterile) 20 ML 10 ML IVP SCH (09:45)
--- NOTE | 2018-02-15 11:32 | Internal Med Progress Note ---
Date of Encounter: 02/15/18 Time of Encounter: 11:32 - Assessment and plan (1) CVA (cerebral vascular accident) Current Visit: Yes Status: Acute Assessment and plan: MRI shows acute to subacute infarct within the left t centrum semi-ovale extending toward the left temporal subcortical white matter and left temporal cortex no evidence of intracranial hemorrhage chronic small vessel ischemic white matter disease and diffuse cerebral volume loss. Neurology consult is recommending continue aspirin and statin PT OT evaluation Carotid duplex nonstenotic plaque bilaterally Awaiting echo results Qualifiers: CVA mechanism: unspecified Qualified Code(s): I63.9 - Cerebral infarction, unspecified (2) Right hand fracture Current Visit: Yes Status: Acute Assessment and plan: Minimally displaced fracture involving the 3rd metacarpal shaft and Comminuted fracture involving the base of the 4th metacarpal bone right hand was noted, surgery was consulted for further evaluation Volar extension splint placed per or so to reduce motion of wrist and hand patient-remove only for hygiene purposes will follow-up with Dr. Day next week Qualifiers: Encounter type: initial encounter Fracture type: closed Qualified Code(s) : S62.91XA - Unspecified fracture of right wrist and hand, initial encounter for closed fracture (3) Dementia Current Visit: Yes Status: Acute Assessment and plan: 1 according to family patient has been experiencing memory loss for the past year however in the past week she has become much more confused. Presently patient is oriented to self only she has some difficulty following simple commands she did injure her hand from a reported fall. CT of head was negative - Neurology has been consulted Falls precautions-PTOT evaluation MRI does show acute to subacute infarct within the left centrum semiovale extending toward the left temporal subcortical white matter and left temporal cortex- Qualifiers: Dementia type: unspecified type Dementia behavioral disturbance: without behavioral disturbance Qualified Code(s): F03.90 - Unspecified dementia without behavioral disturbance (4) Fall Current Visit: Yes Status: Acute Assessment and plan: 1 patient had an unwitnessed fall approximately 10 days ago she has a minimally displaced fracture involving the third metacarpal-continue with volar splint Fall precautions PT OT evaluation Qualifiers: Encounter type: initial encounter Qualified Code(s): W19.XXXA - Unspecified fall, initial encounter (5) UTI (urinary tract infection) Current Visit: Yes Status: Acute Assessment and plan: Analysis does show positive nitrates as well as leukocyte esterase and bacteria however suspect this is contaminated. Continue Rocephin until urine culture is verified-urine sent for culture per ED No white count we will continue to monitor Qualifiers: Urinary tract infection type: site unspecified Hematuria presence: without hematuria Qualified Code(s): N39.0 - Urinary tract infection, site not specified (6) DVT prophylaxis Current Visit: Yes Status: Acute Assessment and plan: SCDs - Time Spent With Patient Total time spent is greater than 50% in coordination of care (as documented) at patient's floor/unit and/or counseling patient: - Subjective Interval history: Patient was seen and examined at bedside. She is alert and oriented 2 following simple commands. Denies any pain or discomfort this time I did review treatment plan with the patient as well as boyfriend who is at & verbalized understanding and agreement. - Constitutional Vitals: Temp Pulse Resp BP Pulse Ox 97.0 F L 52 22 133/73 96 02/15/18 08:15 02/15/18 08:15 02/15/18 08:15 02/15/18 08:15 02/15/18 08:15 General appearance: Present: A&O X 2 - Head Head exam: Present: atraumatic, normocephalic - Eye Eye exam: Present: PERRL, conjuntiva pink, sclera anicteric Pupils: Present: PERRL - Neck Neck exam general surgery: Present: supple, trachea midline. Absent: lymphadenopathy - Respiratory Respiratory exam: Present: CTAB. Absent: accessory muscle use, rales, rhonchi, wheezes - Cardiovascular Cardiovascular exam: Present: RRR, +S1, +S2, systolic murmur. Absent: diastolic murmur, gallop, rubs - GI/Abdominal GI/Abdominal exam: Present: normal bowel sounds, soft, no peritoneal signs. Absent: distended, tenderness - Extremities Exam Extremities exam: Present: warm, radial pulses palpable and symmetrical. Absent : calf tenderness, cyanotic, pedal edema - Neurological Exam Neurological exam: Present: CN II-XII intact, oriented X3, no focal deficits. Absent: pronater drift, facial droop, speech deficit - Skin Skin exam: Present: dry, intact Internal Medicine: Result - Labs CBC & Chem 7: 02/15/18 03:57 02/15/18 03:57 Labs: Short CBC 02/15/18 Range/Units 03:57 WBC 8.1 (4.3-11.1) K/mcL Hgb 14.6 (11.5-15.4) g/dL Hct 42.2 (35.3-44.9) % Plt Count 242 (140-400) K/mcL Neutrophils # 4.5 (1.6-8.9) K/mcL BMP 02/15/18 03:57 Sodium 140 Potassium 3.1 L Chloride 107 Carbon Dioxide 26 BUN 12 Creatinine 0.69 Glucose 178 H Calcium 9.5 - ABG Interpretation ABG results: PT/INR, D-dimer PT 14.1 Seconds (9.4-12.1) H 02/14/18 03:45 - Impressions Impressions Brain MRI 02/14/18 12:34 IMPRESSION: 1. Acute to subacute infarct within the left centrum semiovale extending towards the left temporal subcortical white matter and left temporal cortex. 2. No evidence of intracranial hemorrhage. 3. Chronic small vessel ischemic white matter disease and diffuse cerebral volume loss. The findings were sent to the [facility]iology Results Communication Cent[facility] be communicated to a licensed caregiver. D/ / 02/14/2018 14:24:28 Boni Simmons MD / palma Interpreting Provider: Boni Simmons MD - VTE Documentation of Mechanical Device: Intermittent pneumatic compression device Consult Discharge Plan - Plan Referrals: Maia Rios MD [Primary Care Provider] - Alejandro Day MD [Partnered Physician] - 02/22/18 8:50 am
[2018-02-16 06:51] LABS: Basophils % 0.5 %; Eosinophils # 0.1 K/mcL (0.0-0.6); Eosinophils % 1.5 %; Hematocrit 40.5 % (35.3-44.9); Hemoglobin 14.1 g/dL (11.5-15.4); Immature Granulocytes % 0.3 % (0-4); Lymphocytes # 3.6 K/mcL (0.6-4.6); Lymphocytes % 45.8 %; Mean Corpuscular HGB Conc 34.8 g/dL (31.6-35.5); Mean Corpuscular Hemoglobin 29.8 pg (28.0-33.3); Mean Corpuscular Volume 85.6 fL (83.0-100.0); Mean Platelet Volume 9.9 fL (9.4-12.4); Monocytes # 0.7 K/mcL (0.0-1.3); Monocytes % 8.7 %; Neutrophils # 3.4 K/mcL (1.6-8.9); Platelet Count 221 K/mcL (140-400); Red Blood Count 4.73 M/mcL (3.82-4.97); Red Cell Distribution Width 12.8 % (11.5-14.5); Segmented Neutrophils % 43.2 %
[2018-02-16 07:09] LABS: BUN/Creatinine Ratio 16 (6-26); Blood Urea Nitrogen 11 mg/dL (8-23); Calcium 9.3 mg/dL (8.6-10.3); Carbon Dioxide 26 mEq/L (23-29); Chloride 110 mEq/L (98-107); Glucose 132 mg/dL (70-105); Osmolality,Calculated 293 (280-300); Potassium 3.5 mEq/L (3.5-5.1); Sodium 141 mEq/L (136-145); eGFR For African Americans > 60 (> 60); eGFR For Non-African Americans > 60 (> 60)
[2018-02-16] MEDS: cefTRIAXone 1,000 MG in Water for inj. (sterile) 20 ML 10 ML IVP SCH (08:42)
[2018-02-16] MEDS: Aspirin 81 MG TAB.CHEW PO SCH (08:43)
--- NOTE | 2018-02-16 09:26 | Neurology Progress Note ---
Date of Encounter: 02/16/18 Time of Encounter: 09:22 Assessment and Plan (1) CVA (cerebral vascular accident) Current Visit: Yes Status: Acute 77 year old woman with HTN, history of [place] who developed acute onset mental status changes, with speech difficulty complicating mental function, with evidence of acute to subacute infarct, likely occurred within the last few days , involving the left parietal and posterior temporal region. This likely is contributing her mental status changes and speech difficulty. The cause appears to be small vessel lacunar or thromboembolic since the lesion is relatively large for typical lacunar infarct and it was close to cerebral cortex. Agree with starting Aspirin 81mg daily. Continue statin therapy. Echocardiography showed normal LVEF of 60%, with severely dilated left atrium. Recommended KAMERON. If KAMERON returned negative for source of thrombus will continue her on aspirin 81mg daily. if positive then would benefit from anticoagulation therapy. Qualifiers: CVA mechanism: unspecified Qualified Code(s): I63.9 - Cerebral infarction, unspecified Subjective Principal diagnosis: CVA Interval history: Patient seen and examined. She is feeling fine, no specific neurological discomforts. No obvious focal deficits seen. She is able to walk with no difficulty. carotid artery duplex showed nonstenotic plaques bilaterally. Echocardiography showed normal LVEF 60% no regional wall motion abnormality, no PFO. Severe dilated left atrium reported. Recommended KAMERON to rule out atrial thrombus. Objective - Constitutional Vitals: Temp Pulse Resp BP Pulse Ox 97.4 F L 45 16 132/73 94 02/16/18 07:29 02/16/18 07:29 02/16/18 07:29 02/16/18 07:29 02/16/18 07:29 - Neurological Exam Sensorimotor examination: Present: intact (Grossly intact) Motor Examination: Present: grossly full strength in all extremities (Right wrist splint noted. ) Motor examination - right side: 5/5: deltoids, biceps, triceps, hip flexors, tibialis Anterior, quadriceps, toe extension (EHL), plantarflexion Motor examination - left side: 5/5: deltoids, biceps, triceps, wrist flexion, wrist extension, hip flexors, inspector watch train, quadriceps, tibialis Anterior, toe extension (EHL), plantarflexion Sensation intact: Present: intact (Grossly intact) Posture: Present: other (None) Mental Status Examination: Present: awake, alert, oriented to person ( Disoriented to time and place. Able to repeat), follows commands appropriately, answers questions appropriately, no agnosia, no aphasia, no aproxia, lucid Cranial nerve examination: Present: PERRL, EOMI, visual leyva intact, corneal reflexes brisk symmetrically, sensory to face intact, mastication intact, no facial asymmetry is present, no dysarthria, hearing is intact symmetrically, soft palate elevates bilaterally upon phonation, gag reflex intact, flexes SCM and trapezius muscles symmetrically with full power, tongue protrudes midline, no atrophy or facial fasiculations present - VTE Documentation of Mechanical Device: Intermittent pneumatic compression device Results - Laboratory Findings CBC and BMP: 02/16/18 06:38 02/16/18 06:38 Abnormal lab findings: Abnormal lab results PT 14.1 Seconds (9.4-12.1) H 02/14/18 03:45 APTT 38.2 Seconds (26.0-36.0) H 02/14/18 03:45 Chloride 110 mEq/L (98-107) H 02/16/18 06:38 Glucose 132 mg/dL (70-105) H 02/16/18 06:38 POC Glucose 120 mg/dL (70-99) H 02/13/18 20:27 Phosphorus 2.5 mg/dL (2.7-4.5) L 02/15/18 03:57 AST 9 Units/L (13-39) L 02/14/18 03:45 ALT 6 Units/L (7-52) L 02/14/18 03:45 Serum Total Protein 5.9 g/dL (6.4-8.9) L 02/14/18 03:45 Globulin 2.2 g/dL (2.4-3.5) L 02/14/18 03:45 Cholesterol 207 mg/dL (< 200) H 02/15/18 03:57 LDL Cholesterol, Calc 150 mg/dL (0-99) H 02/15/18 03:57 HDL Cholesterol 34 mg/dL (40-59) L 02/15/18 03:57 Cholesterol/HDL Ratio 6.1 (0-4.9) H 02/15/18 03:57 Urine Clarity Cloudy (Clear) A 02/13/18 20:29 Ur Specific [place] 1.029 (1.010-1.025) H 02/13/18 20:29 Urine Protein 30 mg/dL (Neg-Trace) H 02/13/18 20:29 Urine Glucose (UA) 250 mg/dL (Normal) H 02/13/18 20:29 Urine Ketones 80 mg/dL (Negative) H 02/13/18 20:29 Urine Nitrite Positive (Negative) A 02/13/18 20:29 Urine Bilirubin Small (Negative) H 02/13/18 20:29 Ur Leukocyte Esterase Small (Negative) H 02/13/18 20:29 Urine Microscopic WBC 30-50 per hpf (0-3) H 02/13/18 20:29 Ur Squamous Epith Cells Many per lpf (None-Few) H 02/13/18 20:29 Urine Bacteria Many per hpf (None-Few) H 02/13/18 20:29 Hyaline Casts Moderate per lpf (None-Few) H 02/13/18 20:29 Urine Yeast Moderate per hpf (None Seen) H 02/13/18 20:29 Ur Culture Indicated? NO. (NO) A 02/13/18 20:29 Consult Discharge Plan - Plan Referrals: Maia Rios MD [Primary Care Provider] - 03/01/18 11:15 am Alejandro Day MD [Partnered Physician] - 02/22/18 8:50 am
--- NOTE | 2018-02-16 09:35 | Internal Med Progress Note ---
Date of Encounter: 02/16/18 Time of Encounter: 09:33 - Assessment and plan (1) CVA (cerebral vascular accident) Current Visit: Yes Status: Acute Assessment and plan: MRI shows acute to subacute infarct within the left t centrum semi-ovale extending toward the left temporal subcortical white matter and left temporal cortex no evidence of intracranial hemorrhage chronic small vessel ischemic white matter disease and diffuse cerebral volume loss. Neurology consult is recommending continue aspirin and statin PT OT evaluation-recommending inpatient swing bed rehabilitation Carotid duplex nonstenotic plaque bilaterally Echo results Impressions: LVEF 60-65%. No pulmonary hypertension. Severely dilated left atrium. No significant valvular dysfunction. No evidence of PFO by agitated saline or color Doppler; if clinically indicated, KAMERON would provide better diagnostic sensitivity for diagnosis of cardioembolic source Will obtain KAMERON patient will be nothing by mouth after midnight Qualifiers: CVA mechanism: unspecified Qualified Code(s): I63.9 - Cerebral infarction, unspecified (2) Right hand fracture Current Visit: Yes Status: Acute Assessment and plan: Minimally displaced fracture involving the 3rd metacarpal shaft and Comminuted fracture involving the base of the 4th metacarpal bone right hand was noted, surgery was consulted for further evaluation Volar extension splint placed to reduce motion of wrist and hand patient- remove only for hygiene purposes will follow-up with Dr. Day next week Qualifiers: Encounter type: initial encounter Fracture type: closed Qualified Code(s) : S62.91XA - Unspecified fracture of right wrist and hand, initial encounter for closed fracture (3) Dementia Current Visit: Yes Status: Acute Assessment and plan: 1 according to family patient has been experiencing memory loss for the past year however in the past week she has become much more confused. Presently patient is oriented to place and self following simple command she did injure her hand from a reported fall. CT of head was negative- Neurology has been consulted-appreciate recommendations Falls precautions-PTOT evaluation MRI does show acute to subacute infarct within the left centrum semiovale extending toward the left temporal subcortical white matter and left temporal cortex- Qualifiers: Dementia type: unspecified type Dementia behavioral disturbance: without behavioral disturbance Qualified Code(s): F03.90 - Unspecified dementia without behavioral disturbance (4) Fall Current Visit: Yes Status: Acute Assessment and plan: 1 patient had an unwitnessed fall approximately 10 days ago she has a minimally displaced fracture involving the third metacarpal-continue with volar splint Fall precautions PT OT evaluation-recommending inpatient rehabilitation swing bed Qualifiers: Encounter type: initial encounter Qualified Code(s): W19.XXXA - Unspecified fall, initial encounter (5) UTI (urinary tract infection) Current Visit: Yes Status: Acute Assessment and plan: Analysis does show positive nitrates as well as leukocyte esterase and bacteria however suspect this is contaminated. Received Rocephin 3 days will discontinue-no complaints of urinary symptoms No white count we will continue to monitor Qualifiers: Urinary tract infection type: site unspecified Hematuria presence: without hematuria Qualified Code(s): N39.0 - Urinary tract infection, site not specified (6) DVT prophylaxis Current Visit: Yes Status: Acute Assessment and plan: SCDs - Time Spent With Patient Total time spent is greater than 50% in coordination of care (as documented) at patient's floor/unit and/or counseling patient: - Subjective Interval history: Patient was seen and examined at bedside. She is alert and oriented 2 following simple commands. Denies any pain or discomfort I did review echo with results with Dr Ramirez as well as with the patient and her boyfriend at the bedside. Attempted to contact patient's daughter Angella nicely to update on condition however not answering calls Recommending KAMERON verbalizing understanding - Constitutional Vitals: Temp Pulse Resp BP Pulse Ox 97.4 F L 45 16 132/73 94 02/16/18 07:29 02/16/18 07:29 02/16/18 07:29 02/16/18 07:29 02/16/18 07:29 General appearance: Present: A&O X 2 - Head Head exam: Present: atraumatic, normocephalic - Eye Eye exam: Present: PERRL, conjuntiva pink, sclera anicteric Pupils: Present: PERRL - Neck Neck exam general surgery: Present: supple, trachea midline. Absent: lymphadenopathy - Respiratory Respiratory exam: Present: CTAB. Absent: accessory muscle use, rales, rhonchi, wheezes - Cardiovascular Cardiovascular exam: Present: RRR, +S1, +S2. Absent: diastolic murmur, gallop, rubs, systolic murmur - GI/Abdominal GI/Abdominal exam: Present: normal bowel sounds, soft, no peritoneal signs. Absent: distended, tenderness - Extremities Exam Extremities exam: Present: warm, radial pulses palpable and symmetrical. Absent : calf tenderness, cyanotic, pedal edema - Neurological Exam Neurological exam: Present: CN II-XII intact, oriented X3, no focal deficits. Absent: pronater drift, facial droop, speech deficit - Skin Skin exam: Present: dry, intact Internal Medicine: Result - Labs CBC & Chem 7: 02/16/18 06:38 02/16/18 06:38 Labs: Short CBC 02/16/18 Range/Units 06:38 WBC 7.9 (4.3-11.1) K/mcL Hgb 14.1 (11.5-15.4) g/dL Hct 40.5 (35.3-44.9) % Plt Count 221 (140-400) K/mcL Neutrophils # 3.4 (1.6-8.9) K/mcL BMP 02/16/18 06:38 Sodium 141 Potassium 3.5 Chloride 110 H Carbon Dioxide 26 BUN 11 Creatinine 0.68 Glucose 132 H Calcium 9.3 - ABG Interpretation ABG results: PT/INR, D-dimer PT 14.1 Seconds (9.4-12.1) H 02/14/18 03:45 - Impressions Impressions Echocardiogram 02/15/18 07:39 Impressions: LVEF 60-65%. No pulmonary hypertension. Severely dilated left atrium. No significant valvular dysfunction. Left Ventricular Wall Motion: Rest Echo Findings All wall segments showed normal motion. Findings: Study Quality * Technically adequate exam. Right Ventricle * Normal right ventricular structure and function. Mitral Valve * Normal mitral valve structure and function. Interatrial Septum * No evidence of PFO by color Doppler. Aorta * Normally sized aortic root. Left Ventricle * LVEF 60-65%. * Indeterminate diastolic function. Pericardium * There is a trivial pericardial effusion present. Tricuspid Valve * Trace tricuspid regurgitation. * No tricuspid stenosis. * Estimated RVSP is 22 mmHg. * Estimated RA pressure is 0-5 mmHg. * No pulmonary hypertension. Pulmonic Valve * No pulmonic stenosis. * Mild pulmonic regurgitation. Aortic Valve * Trileaflet aortic valve. * Mildly calcified aortic valve leaflets. * No aortic stenosis. * No aortic regurgitation. ECG Findings * Atrial fibrillation. Left Atrium * Severely dilated left atrium. Right Atrium * Right atrium is not well visualized. IVC * Normal IVC dimensions and inspiratory collapse. ADDENDUM: 02/16/18 0728 Impressions: LVEF 60-65%. No pulmonary hypertension. Severely dilated left atrium. No significant valvular dysfunction. No evidence of PFO by agitated saline or color Doppler; if clinically indicated, KAMERON would provide better diagnostic sensitivity for diagnosis of cardioembolic source Left Ventricular Wall Motion: Rest Echo Findings All wall segments showed normal motion. Findings: Study Quality * Technically adequate exam. Right Ventricle * Normal right ventricular structure and function. Mitral Valve * Normal mitral valve structure and function. Interatrial Septum * No evidence of PFO by color Doppler. Aorta * Normally sized aortic root. Left Ventricle * LVEF 60-65%. * Indeterminate diastolic function. Pericardium * There is a trivial pericardial effusion present. Tricuspid Valve * Trace tricuspid regurgitation. * No tricuspid stenosis. * Estimated RVSP is 22 mmHg. * Estimated RA pressure is 0-5 mmHg. * No pulmonary hypertension. Pulmonic Valve * No pulmonic stenosis. * Mild pulmonic regurgitation. Aortic Valve * Trileaflet aortic valve. * Mildly calcified aortic valve leaflets. * No aortic stenosis. * No aortic regurgitation. ECG Findings * Atrial fibrillation. Left Atrium * Severely dilated left atrium. Right Atrium * Right atrium is not well visualized. IVC * Normal IVC dimensions and inspiratory collapse. - VTE Documentation of Mechanical Device: Intermittent pneumatic compression device Consult Discharge Plan - Plan Referrals: Maia Rios MD [Primary Care Provider] - 03/01/18 11:15 am Alejandro Day MD [Partnered Physician] - 02/22/18 8:50 am
[2018-02-17 03:51] LABS: Basophils % 0.5 %; Eosinophils # 0.1 K/mcL (0.0-0.6); Eosinophils % 1.4 %; Hematocrit 40.4 % (35.3-44.9); Hemoglobin 14.3 g/dL (11.5-15.4); Immature Granulocytes % 0.5 % (0-4); Immature Platelets 4.4 % (1.1-6.1); Lymphocytes # 3.5 K/mcL (0.6-4.6); Lymphocytes % 42.2 %; Mean Corpuscular HGB Conc 35.4 g/dL (31.6-35.5); Mean Corpuscular Hemoglobin 30.4 pg (28.0-33.3); Mean Platelet Volume 10.1 fL (9.4-12.4); Monocytes # 0.7 K/mcL (0.0-1.3); Monocytes % 8.9 %; Neutrophils # 3.9 K/mcL (1.6-8.9); Platelet Count 225 K/mcL (140-400); Red Cell Distribution Width 12.5 % (11.5-14.5); Segmented Neutrophils % 46.5 %
[2018-02-17 04:04] LABS: BUN/Creatinine Ratio 19 (6-26); Blood Urea Nitrogen 13 mg/dL (8-23); Calcium 9.4 mg/dL (8.6-10.3); Carbon Dioxide 26 mEq/L (23-29); Chloride 108 mEq/L (98-107); Glucose 124 mg/dL (70-105); Osmolality,Calculated 290 (280-300); Potassium 3.4 mEq/L (3.5-5.1); Sodium 139 mEq/L (136-145); eGFR For African Americans > 60 (> 60); eGFR For Non-African Americans > 60 (> 60)
[2018-02-17] MEDS: Aspirin 81 MG TAB.CHEW PO SCH (07:46)
--- NOTE | 2018-02-17 09:07 | Internal Med Progress Note ---
Date of Encounter: 02/17/18 Time of Encounter: 09:06 - Assessment and plan (1) CVA (cerebral vascular accident) Current Visit: Yes Status: Acute Assessment and plan: MRI shows acute to subacute infarct within the left t centrum semi-ovale extending toward the left temporal subcortical white matter and left temporal cortex no evidence of intracranial hemorrhage chronic small vessel ischemic white matter disease and diffuse cerebral volume loss. Neurology consult is recommending continue aspirin and statin PT OT evaluation-recommending inpatient swing bed rehabilitation Carotid duplex nonstenotic plaque bilaterally Echo results Impressions: LVEF 60-65%. No pulmonary hypertension. Severely dilated left atrium. No significant valvular dysfunction. No evidence of PFO by agitated saline or color Doppler; if clinically indicated, KAMERON would provide better diagnostic sensitivity for diagnosis of cardioembolic source Will obtain KAMERON awaiting results - consult cardiology as needed Qualifiers: CVA mechanism: unspecified Qualified Code(s): I63.9 - Cerebral infarction, unspecified (2) Right hand fracture Current Visit: Yes Status: Acute Assessment and plan: Minimally displaced fracture involving the 3rd metacarpal shaft and Comminuted fracture involving the base of the 4th metacarpal bone right hand was noted, surgery was consulted for further evaluation Volar extension splint placed to reduce motion of wrist and hand patient- remove only for hygiene purposes will follow-up with Dr. Day next week Qualifiers: Encounter type: initial encounter Fracture type: closed Qualified Code(s) : S62.91XA - Unspecified fracture of right wrist and hand, initial encounter for closed fracture (3) Dementia Current Visit: Yes Status: Acute Assessment and plan: 1 according to family patient has been experiencing memory loss for the past year however in the past week she has become much more confused. Presently patient is oriented to self following simple command she did injure her hand from a reported fall. CT of head was negative- Neurology has been consulted-appreciate recommendations Falls precautions-PTOT evaluation MRI does show acute to subacute infarct within the left centrum semiovale extending toward the left temporal subcortical white matter and left temporal cortex- Qualifiers: Dementia type: unspecified type Dementia behavioral disturbance: without behavioral disturbance Qualified Code(s): F03.90 - Unspecified dementia without behavioral disturbance (4) Fall Current Visit: Yes Status: Acute Assessment and plan: 1 patient had an unwitnessed fall approximately 10 days ago she has a minimally displaced fracture involving the third metacarpal-continue with volar splint Fall precautions PT OT evaluation-recommending inpatient rehabilitation swing bed social services coordinator working on ECF placement this time Qualifiers: Encounter type: initial encounter Qualified Code(s): W19.XXXA - Unspecified fall, initial encounter (5) UTI (urinary tract infection) Current Visit: Yes Status: Resolved Assessment and plan: Analysis does show positive nitrates as well as leukocyte esterase and bacteria however suspect this is contaminated. Received Rocephin 3 days will discontinue-no complaints of urinary symptoms No white count we will continue to monitor Qualifiers: Urinary tract infection type: site unspecified Hematuria presence: without hematuria Qualified Code(s): N39.0 - Urinary tract infection, site not specified (6) DVT prophylaxis Current Visit: Yes Status: Acute Assessment and plan: SCDs - Time Spent With Patient Total time spent is greater than 50% in coordination of care (as documented) at patient's floor/unit and/or counseling patient: - Subjective Interval history: Patient was seen and examined at bedside. She is alert and oriented to name only follow simple commands. Awaiting KAMERON and ECF placment .I reviewed treatment plan with patient and significant other at bedside. I did speak with patient's daughter who is the next of kin Angella Canseco via telephone and explained the risks of procedure and obtaining consent for KAMERON which was confirmed More Live RN - Constitutional Vitals: Temp Pulse Resp BP Pulse Ox 98.0 F 48 16 125/69 94 02/17/18 07:51 02/17/18 07:51 02/17/18 07:51 02/17/18 07:51 02/17/18 07:51 General appearance: Present: A&O X 2 - Head Head exam: Present: atraumatic, normocephalic - Eye Eye exam: Present: PERRL, conjuntiva pink, sclera anicteric Pupils: Present: PERRL - Neck Neck exam general surgery: Present: supple, trachea midline. Absent: lymphadenopathy - Respiratory Respiratory exam: Present: CTAB. Absent: accessory muscle use, rales, rhonchi, wheezes - Cardiovascular Cardiovascular exam: Present: RRR, +S1, +S2. Absent: diastolic murmur, gallop, rubs, systolic murmur - GI/Abdominal GI/Abdominal exam: Present: normal bowel sounds, soft, no peritoneal signs. Absent: distended, tenderness - Extremities Exam Extremities exam: Present: warm, radial pulses palpable and symmetrical. Absent : calf tenderness, cyanotic, pedal edema - Neurological Exam Neurological exam: Present: CN II-XII intact, oriented X3, no focal deficits. Absent: pronater drift, facial droop, speech deficit - Skin Skin exam: Present: dry, intact Internal Medicine: Result - Labs CBC & Chem 7: 02/17/18 03:34 02/17/18 03:34 Labs: Short CBC 02/17/18 Range/Units 03:34 WBC 8.4 (4.3-11.1) K/mcL Hgb 14.3 (11.5-15.4) g/dL Hct 40.4 (35.3-44.9) % Plt Count 225 (140-400) K/mcL Neutrophils # 3.9 (1.6-8.9) K/mcL BMP 02/17/18 03:34 Sodium 139 Potassium 3.4 L Chloride 108 H Carbon Dioxide 26 BUN 13 Creatinine 0.68 Glucose 124 H Calcium 9.4 - ABG Interpretation ABG results: PT/INR, D-dimer PT 14.1 Seconds (9.4-12.1) H 02/14/18 03:45 - VTE Documentation of Mechanical Device: Intermittent pneumatic compression device Consult Discharge Plan - Plan Referrals: Maia Rios MD [Primary Care Provider] - 03/01/18 11:15 am Alejandro Day MD [Partnered Physician] - 02/22/18 8:50 am
[2018-02-17] MEDS ORDERED: *HR* Midazolam HCl 5 MG/5 ML VIAL IVP ONE (11:23)
[2018-02-17] MEDS ORDERED: *HR* FentaNYL (PF) 100 MCG/2 ML VIAL ONE (11:23)
--- NOTE | 2018-02-17 16:28 | Neurology Progress Note ---
Date of Encounter: 02/17/18 Time of Encounter: 16:25 Assessment and Plan (1) CVA (cerebral vascular accident) Current Visit: Yes Status: Acute 77 year old woman with HTN, history of [place] who developed acute onset mental status changes, with speech difficulty complicating mental function, with evidence of acute to subacute infarct, likely occurred within the last few days , involving the left parietal and posterior temporal region. This likely is contributing her mental status changes and speech difficulty. KAMERON showed no cardiac source of emboli. Agree with starting Aspirin 81mg daily. Continue statin therapy. PT. Will sign off at this time, will re-evaluate at your request Qualifiers: CVA mechanism: unspecified Qualified Code(s): I63.9 - Cerebral infarction, unspecified Subjective Principal diagnosis: CVA Interval history: Patient seen and examined. She completed KAMERON and is currently wide awake and comfortable. Reports no focal neurological deficits. KAMERON showed no sorce of thrombus in the ventricles or left atrial appendage NO PFO reported. . Objective - Constitutional Vitals: Temp Pulse Resp BP Pulse Ox 96.6 F L 53 14 137/69 98 02/17/18 15:37 02/17/18 15:37 02/17/18 15:37 02/17/18 15:37 02/17/18 15:37 - Neurological Exam Sensorimotor examination: Present: intact (Grossly intact) Motor Examination: Present: grossly full strength in all extremities (Right wrist splint noted. ) Motor examination - right side: 5/5: deltoids, biceps, triceps, wrist flexion, wrist extension, welder experimental, hip flexors, tibialis Anterior, quadriceps, toe extension (EHL), plantarflexion Motor examination - left side: 5/5: deltoids, biceps, triceps, wrist flexion, wrist extension, hip flexors, welder experimental, quadriceps, tibialis Anterior, toe extension (EHL), plantarflexion Sensation intact: Present: intact (Grossly intact) Posture: Present: other (None) Mental Status Examination: Present: awake, alert, oriented to person ( Disoriented to time and place. Able to repeat), follows commands appropriately, answers questions appropriately, no agnosia, no aphasia, no aproxia, lucid Cranial nerve examination: Present: PERRL, EOMI, visual leyva intact, corneal reflexes brisk symmetrically, sensory to face intact, mastication intact, no facial asymmetry is present, no dysarthria, hearing is intact symmetrically, soft palate elevates bilaterally upon phonation, gag reflex intact, flexes SCM and trapezius muscles symmetrically with full power, tongue protrudes midline, no atrophy or facial fasiculations present - VTE Documentation of Mechanical Device: Intermittent pneumatic compression device Results - Laboratory Findings CBC and BMP: 02/17/18 03:34 02/17/18 03:34 Abnormal lab findings: Abnormal lab results PT 14.1 Seconds (9.4-12.1) H 02/14/18 03:45 APTT 38.2 Seconds (26.0-36.0) H 02/14/18 03:45 Potassium 3.4 mEq/L (3.5-5.1) L 02/17/18 03:34 Chloride 108 mEq/L (98-107) H 02/17/18 03:34 Glucose 124 mg/dL (70-105) H 02/17/18 03:34 POC Glucose 120 mg/dL (70-99) H 02/13/18 20:27 Phosphorus 2.5 mg/dL (2.7-4.5) L 02/15/18 03:57 AST 9 Units/L (13-39) L 02/14/18 03:45 ALT 6 Units/L (7-52) L 02/14/18 03:45 Serum Total Protein 5.9 g/dL (6.4-8.9) L 02/14/18 03:45 Globulin 2.2 g/dL (2.4-3.5) L 02/14/18 03:45 Cholesterol 207 mg/dL (< 200) H 02/15/18 03:57 LDL Cholesterol, Calc 150 mg/dL (0-99) H 02/15/18 03:57 HDL Cholesterol 34 mg/dL (40-59) L 02/15/18 03:57 Cholesterol/HDL Ratio 6.1 (0-4.9) H 02/15/18 03:57 Urine Clarity Cloudy (Clear) A 02/13/18 20:29 Ur Specific [place] 1.029 (1.010-1.025) H 02/13/18 20:29 Urine Protein 30 mg/dL (Neg-Trace) H 02/13/18 20:29 Urine Glucose (UA) 250 mg/dL (Normal) H 02/13/18 20:29 Urine Ketones 80 mg/dL (Negative) H 02/13/18 20:29 Urine Nitrite Positive (Negative) A 02/13/18 20:29 Urine Bilirubin Small (Negative) H 02/13/18 20:29 Ur Leukocyte Esterase Small (Negative) H 02/13/18 20:29 Urine Microscopic WBC 30-50 per hpf (0-3) H 02/13/18 20:29 Ur Squamous Epith Cells Many per lpf (None-Few) H 02/13/18 20:29 Urine Bacteria Many per hpf (None-Few) H 02/13/18 20:29 Hyaline Casts Moderate per lpf (None-Few) H 02/13/18 20:29 Urine Yeast Moderate per hpf (None Seen) H 02/13/18 20:29 Ur Culture Indicated? NO. (NO) A 02/13/18 20:29 Consult Discharge Plan - Plan Referrals: Maia Rios MD [Primary Care Provider] - 03/01/18 11:15 am Alejandro Day MD [Partnered Physician] - 02/22/18 8:50 am
[2018-02-18 06:26] LABS: BUN/Creatinine Ratio 15 (6-26); Blood Urea Nitrogen 11 mg/dL (8-23); Calcium 9.1 mg/dL (8.6-10.3); Carbon Dioxide 27 mEq/L (23-29); Chloride 109 mEq/L (98-107); Glucose 124 mg/dL (70-105); Osmolality,Calculated 291 (280-300); Potassium 3.6 mEq/L (3.5-5.1); Sodium 140 mEq/L (136-145); eGFR For African Americans > 60 (> 60); eGFR For Non-African Americans > 60 (> 60)
[2018-02-18] MEDS: Aspirin 81 MG TAB.CHEW PO SCH (08:38)
--- NOTE | 2018-02-18 09:00 | Internal Med Progress Note ---
Date of Encounter: 02/18/18 Time of Encounter: 08:58 - Assessment and plan (1) CVA (cerebral vascular accident) Current Visit: Yes Status: Acute Assessment and plan: MRI shows acute to subacute infarct within the left t centrum semi-ovale extending toward the left temporal subcortical white matter and left temporal cortex no evidence of intracranial hemorrhage chronic small vessel ischemic white matter disease and diffuse cerebral volume loss. Neurology consult is recommending continue aspirin and statin PT OT evaluation-recommending inpatient swing bed rehabilitation- waiting for ECF placement Carotid duplex nonstenotic plaque bilaterally KAMERON Impressions: LVEF 60%. Normal LV size and function. Right ventricle was normal in size and systolic function. LA appendage is normal in appearance. No thrombus. No evidence of inter-atrial shunting noted with saline contrast or color Doppler. Mild tricuspid regurgitation. No pulmonary hypertension. No plaque formation in the ascending aorta or aortic arch. Moderate, non-mobile plaque formation in the descending thoracic aorta. No cardiac source of emboli identified. Qualifiers: CVA mechanism: unspecified Qualified Code(s): I63.9 - Cerebral infarction, unspecified (2) Right hand fracture Current Visit: Yes Status: Acute Assessment and plan: Minimally displaced fracture involving the 3rd metacarpal shaft and Comminuted fracture involving the base of the 4th metacarpal bone right hand was noted, surgery was consulted for further evaluation Volar extension splint placed to reduce motion of wrist and hand patient- remove only for hygiene purposes will follow-up with Dr. Day next week will make appointment prior to discharge Qualifiers: Encounter type: initial encounter Fracture type: closed Qualified Code(s) : S62.91XA - Unspecified fracture of right wrist and hand, initial encounter for closed fracture (3) Dementia Current Visit: Yes Status: Acute Assessment and plan: 1 according to family patient has been experiencing memory loss for the past year however in the past week she has become much more confused. Presently patient is oriented to self following simple command she did injure her hand from a reported fall. CT of head was negative Neurology has been consulted-appreciate recommendations Falls precautions-PTOT evaluation MRI does show acute to subacute infarct within the left centrum semiovale extending toward the left temporal subcortical white matter and left temporal cortex- Qualifiers: Dementia type: unspecified type Dementia behavioral disturbance: without behavioral disturbance Qualified Code(s): F03.90 - Unspecified dementia without behavioral disturbance (4) Fall Current Visit: Yes Status: Acute Assessment and plan: 1 patient had an unwitnessed fall approximately 10 days ago she has a minimally displaced fracture involving the third metacarpal-continue with volar splint Fall precautions PT OT evaluation-recommending inpatient rehabilitation swing bed inpatient services rn working on ECF placement this time Qualifiers: Encounter type: initial encounter Qualified Code(s): W19.XXXA - Unspecified fall, initial encounter (5) UTI (urinary tract infection) Current Visit: Yes Status: Resolved Assessment and plan: Analysis does show positive nitrates as well as leukocyte esterase and bacteria however suspect this is contaminated. Received Rocephin 3 days will discontinue-no complaints of urinary symptoms No white count we will continue to monitor Qualifiers: Urinary tract infection type: site unspecified Hematuria presence: without hematuria Qualified Code(s): N39.0 - Urinary tract infection, site not specified (6) DVT prophylaxis Current Visit: Yes Status: Acute Assessment and plan: SCDs - Time Spent With Patient Total time spent is greater than 50% in coordination of care (as documented) at patient's floor/unit and/or counseling patient: - Subjective Interval history: Patient was seen and examined at bedside. She is up to chair eating breakfast She is alert and oriented to name only follow simple commands. Currently waiting ECF placement. Anticipate discharge tomorrow - Constitutional Vitals: Temp Pulse Resp BP Pulse Ox 97.7 F 53 16 160/83 97 02/18/18 08:34 02/18/18 08:34 02/18/18 08:34 02/18/18 08:34 02/18/18 08:34 General appearance: Present: A&O X 2 - Head Head exam: Present: atraumatic, normocephalic - Eye Eye exam: Present: PERRL, conjuntiva pink, sclera anicteric Pupils: Present: PERRL - Neck Neck exam general surgery: Present: supple, trachea midline. Absent: lymphadenopathy - Respiratory Respiratory exam: Present: CTAB. Absent: accessory muscle use, rales, rhonchi, wheezes - Cardiovascular Cardiovascular exam: Present: RRR, +S1, +S2. Absent: diastolic murmur, gallop, rubs, systolic murmur - GI/Abdominal GI/Abdominal exam: Present: normal bowel sounds, soft, no peritoneal signs. Absent: distended, tenderness - Extremities Exam Extremities exam: Present: warm, radial pulses palpable and symmetrical. Absent : calf tenderness, cyanotic, pedal edema - Neurological Exam Neurological exam: Present: CN II-XII intact, oriented X3, no focal deficits. Absent: pronater drift, facial droop, speech deficit - Skin Skin exam: Present: dry, intact Internal Medicine: Result - Labs CBC & Chem 7: 02/17/18 03:34 02/18/18 05:50 Labs: BMP 02/18/18 05:50 Sodium 140 Potassium 3.6 Chloride 109 H Carbon Dioxide 27 BUN 11 Creatinine 0.75 Glucose 124 H Calcium 9.1 - ABG Interpretation ABG results: PT/INR, D-dimer PT 14.1 Seconds (9.4-12.1) H 02/14/18 03:45 - VTE Documentation of Mechanical Device: Intermittent pneumatic compression device Consult Discharge Plan - Plan Referrals: Maia Rios MD [Primary Care Provider] - 03/01/18 11:15 am Alejandro Day MD [Partnered Physician] - 02/22/18 8:50 am
[2018-02-19] MEDS: Aspirin 81 MG TAB.CHEW PO SCH (07:40)
--- NOTE | 2018-02-19 11:31 | Internal Med Progress Note ---
Date of Encounter: 02/19/18 Time of Encounter: 11:21 - Assessment and plan (1) CVA (cerebral vascular accident) Current Visit: Yes Status: Acute Assessment and plan: MRI shows acute to subacute infarct within the left t centrum semi-ovale extending toward the left temporal subcortical white matter and left temporal cortex no evidence of intracranial hemorrhage chronic small vessel ischemic white matter disease and diffuse cerebral volume loss. Neurology consult is recommending continue aspirin and [id number] with neurology as outpatient PT OT evaluation-recommending inpatient swing bed rehabilitation- waiting for ECF placement Carotid duplex nonstenotic plaque bilaterally KAMERON Impressions: LVEF 60%. Normal LV size and function. Right ventricle was normal in size and systolic function. LA appendage is normal in appearance. No thrombus. No evidence of inter-atrial shunting noted with saline contrast or color Doppler. Mild tricuspid regurgitation. No pulmonary hypertension. No plaque formation in the ascending aorta or aortic arch. Moderate, non-mobile plaque formation in the descending thoracic aorta. No cardiac source of emboli identified. Qualifiers: CVA mechanism: unspecified Qualified Code(s): I63.9 - Cerebral infarction, unspecified (2) Right hand fracture Current Visit: Yes Status: Acute Assessment and plan: Minimally displaced fracture involving the 3rd metacarpal shaft and Comminuted fracture involving the base of the 4th metacarpal bone right hand was noted, surgery was consulted for further evaluation Volar extension splint placed to reduce motion of wrist and hand patient- remove only for hygiene purposes will follow-up with Dr. Day next week will make appointment prior to discharge Qualifiers: Encounter type: initial encounter Fracture type: closed Qualified Code(s) : S62.91XA - Unspecified fracture of right wrist and hand, initial encounter for closed fracture (3) Dementia Current Visit: Yes Status: Acute Assessment and plan: 1 according to family patient has been experiencing memory loss for the past year however in the past week she has become much more confused. Presently patient is oriented to self following simple command she did injure her hand from a reported fall. CT of head was negative Neurology has been consulted-appreciate recommendations Falls precautions-PTOT evaluation MRI does show acute to subacute infarct within the left centrum semiovale extending toward the left temporal subcortical white matter and left temporal cortex- Qualifiers: Dementia type: unspecified type Dementia behavioral disturbance: without behavioral disturbance Qualified Code(s): F03.90 - Unspecified dementia without behavioral disturbance (4) Fall Current Visit: Yes Status: Acute Assessment and plan: 1 patient had an unwitnessed fall approximately 10 days ago she has a minimally displaced fracture involving the third metacarpal-continue with volar splint Fall precautions PT OT evaluation-recommending inpatient rehabilitation swing bed enrollment services dean working on ECF placement this time Qualifiers: Encounter type: initial encounter Qualified Code(s): W19.XXXA - Unspecified fall, initial encounter (5) UTI (urinary tract infection) Current Visit: Yes Status: Resolved Assessment and plan: Analysis does show positive nitrates as well as leukocyte esterase and bacteria however suspect this is contaminated. Received Rocephin 3 days will discontinue-no complaints of urinary symptoms No white count we will continue to monitor Qualifiers: Urinary tract infection type: site unspecified Hematuria presence: without hematuria Qualified Code(s): N39.0 - Urinary tract infection, site not specified (6) DVT prophylaxis Current Visit: Yes Status: Acute Assessment and plan: SCDs - Time Spent With Patient Total time spent is greater than 50% in coordination of care (as documented) at patient's floor/unit and/or counseling patient: - Subjective Interval history: Patient was seen and examined at bedside. She is up to chair eating breakfast She is alert and oriented to name only follow simple commands. Currently waiting ECF placement. Anticipate discharge Tuesday - Constitutional Vitals: Temp Pulse Resp BP Pulse Ox 97.7 F 67 18 120/75 94 02/19/18 07:19 02/19/18 07:19 02/19/18 07:19 02/19/18 07:19 02/19/18 07:19 General appearance: Present: A&O X 2 - Head Head exam: Present: atraumatic, normocephalic - Eye Eye exam: Present: PERRL, conjuntiva pink, sclera anicteric Pupils: Present: PERRL - Neck Neck exam general surgery: Present: supple, trachea midline. Absent: lymphadenopathy - Respiratory Respiratory exam: Present: CTAB. Absent: accessory muscle use, rales, rhonchi, wheezes - Cardiovascular Cardiovascular exam: Present: RRR, +S1, +S2. Absent: diastolic murmur, gallop, rubs, systolic murmur - GI/Abdominal GI/Abdominal exam: Present: normal bowel sounds, soft, no peritoneal signs. Absent: distended, tenderness - Extremities Exam Extremities exam: Present: warm, radial pulses palpable and symmetrical. Absent : calf tenderness, cyanotic, pedal edema - Neurological Exam Neurological exam: Present: CN II-XII intact, oriented X3, no focal deficits. Absent: pronater drift, facial droop, speech deficit - Skin Skin exam: Present: dry, intact Internal Medicine: Result - Labs CBC & Chem 7: 02/17/18 03:34 02/18/18 05:50 - ABG Interpretation ABG results: PT/INR, D-dimer PT 14.1 Seconds (9.4-12.1) H 02/14/18 03:45 - VTE Documentation of Mechanical Device: Intermittent pneumatic compression device Consult Discharge Plan - Plan Referrals: Maia Rios MD [Primary Care Provider] - 03/01/18 11:15 am Alejandro Day MD [Partnered Physician] - 02/22/18 8:50 am
--- NOTE | 2018-02-19 11:37 | Internal Med Progress Note ---
Date of Encounter: 02/20/18 Time of Encounter: 11:37 - Assessment and plan (1) CVA (cerebral vascular accident) Current Visit: Yes Status: Acute Assessment and plan: MRI shows acute to subacute infarct within the left t centrum semi-ovale extending toward the left temporal subcortical white matter and left temporal cortex no evidence of intracranial hemorrhage chronic small vessel ischemic white matter disease and diffuse cerebral volume loss. Neurology consult is recommending continue aspirin and [id number] with neurology as outpatient - no change stable PT OT evaluation-recommending inpatient swing bed rehabilitation- waiting for ECF placement Carotid duplex nonstenotic plaque bilaterally KAMERON Impressions: LVEF 60%. Normal LV size and function. Right ventricle was normal in size and systolic function. LA appendage is normal in appearance. No thrombus. No evidence of inter-atrial shunting noted with saline contrast or color Doppler. Mild tricuspid regurgitation. No pulmonary hypertension. No plaque formation in the ascending aorta or aortic arch. Moderate, non-mobile plaque formation in the descending thoracic aorta. No cardiac source of emboli identified. Qualifiers: CVA mechanism: unspecified Qualified Code(s): I63.9 - Cerebral infarction, unspecified (2) Right hand fracture Current Visit: Yes Status: Acute Assessment and plan: Minimally displaced fracture involving the 3rd metacarpal shaft and Comminuted fracture involving the base of the 4th metacarpal bone right hand was noted, surgery was consulted for further evaluation Volar extension splint placed to reduce motion of wrist and hand patient- remove only for hygiene purposes will follow-up with Dr. Day next week will make appointment prior to discharge Qualifiers: Encounter type: initial encounter Fracture type: closed Qualified Code(s) : S62.91XA - Unspecified fracture of right wrist and hand, initial encounter for closed fracture (3) Dementia Current Visit: Yes Status: Acute Assessment and plan: 1 according to family patient has been experiencing memory loss for the past year however in the past week she has become much more confused. Presently patient is oriented to self following simple command she did injure her hand from a reported fall. CT of head was negative Neurology has been consulted-appreciate recommendations Falls precautions-PTOT evaluation MRI does show acute to subacute infarct within the left centrum semiovale extending toward the left temporal subcortical white matter and left temporal cortex- Qualifiers: Dementia type: unspecified type Dementia behavioral disturbance: without behavioral disturbance Qualified Code(s): F03.90 - Unspecified dementia without behavioral disturbance (4) Fall Current Visit: Yes Status: Acute Assessment and plan: 1 patient had an unwitnessed fall approximately 10 days ago she has a minimally displaced fracture involving the third metacarpal-continue with volar splint Fall precautions PT OT evaluation-recommending inpatient rehabilitation [facility] bed [facility] working on ECF placement this time Qualifiers: Encounter type: initial encounter Qualified Code(s): W19.XXXA - Unspecified fall, initial encounter (5) UTI (urinary tract infection) Current Visit: Yes Status: Resolved Assessment and plan: Analysis does show positive nitrates as well as leukocyte esterase and bacteria however suspect this is contaminated. Received Rocephin 3 days will discontinue-no complaints of urinary symptoms No white count we will continue to monitor Qualifiers: Urinary tract infection type: site unspecified Hematuria presence: without hematuria Qualified Code(s): N39.0 - Urinary tract infection, site not specified (6) DVT prophylaxis Current Visit: Yes Status: Acute Assessment and plan: SCDs - Time Spent With Patient Total time spent is greater than 50% in coordination of care (as documented) at patient's floor/unit and/or counseling patient: - Subjective Interval history: Patient was seen and examined at bedside. She is up to chair eating breakfast She is alert and oriented to name only follow simple commands. Currently waiting ECF placement. Anticipate discharge Tuesday - Constitutional Vitals: Temp Pulse Resp BP Pulse Ox 97.7 F 67 18 120/75 94 02/19/18 07:19 02/19/18 07:19 02/19/18 07:19 02/19/18 07:19 02/19/18 07:19 General appearance: Present: A&O X 2 - Head Head exam: Present: atraumatic, normocephalic - Neck Neck exam general surgery: Present: supple, trachea midline. Absent: lymphadenopathy - Respiratory Respiratory exam: Present: CTAB. Absent: accessory muscle use, rales, rhonchi, wheezes - Cardiovascular Cardiovascular exam: Present: RRR, +S1, +S2. Absent: diastolic murmur, gallop, rubs, systolic murmur - GI/Abdominal GI/Abdominal exam: Present: normal bowel sounds, soft, no peritoneal signs. Absent: distended, tenderness - Extremities Exam Extremities exam: Present: warm, radial pulses palpable and symmetrical. Absent : calf tenderness, cyanotic, pedal edema - Neurological Exam Neurological exam: Present: CN II-XII intact, oriented X3, no focal deficits. Absent: pronater drift, facial droop, speech deficit - Skin Skin exam: Present: dry, intact Internal Medicine: Result - Labs CBC & Chem 7: 02/17/18 03:34 02/18/18 05:50 - ABG Interpretation ABG results: PT/INR, D-dimer PT 14.1 Seconds (9.4-12.1) H 02/14/18 03:45 - VTE Documentation of Mechanical Device: Intermittent pneumatic compression device Consult Discharge Plan - Plan Referrals: Alejandro Day MD [Partnered Physician] - 02/22/18 8:50 am
[2018-02-20 06:55] VITALS: BP 112/68
--- NOTE | 2018-02-20 08:38 | Discharge Summary ---
- NOTES TO OUTPATIENT PROVIDER Notes to Outpatient Provider: She is to follow up with orhto this week. follow up with neuro - cont ASA statin Date of Encounter: 02/20/18 Time of Encounter: 08:36 - Discharge Diagnosis (1) CVA (cerebral vascular accident) Priority: Primary Status: Acute Qualifiers: CVA mechanism: unspecified Qualified Code(s): I63.9 - Cerebral infarction, unspecified (2) Right hand fracture Priority: Secondary Status: Acute Qualifiers: Encounter type: initial encounter Fracture type: closed Qualified Code(s) : S62.91XA - Unspecified fracture of right wrist and hand, initial encounter for closed fracture (3) Dementia Priority: Secondary Status: Acute Qualifiers: Dementia type: unspecified type Dementia behavioral disturbance: without behavioral disturbance Qualified Code(s): F03.90 - Unspecified dementia without behavioral disturbance (4) Fall Priority: Secondary Status: Acute Qualifiers: Encounter type: initial encounter Qualified Code(s): W19.XXXA - Unspecified fall, initial encounter Hospital course: Ms. Lee is a 77 year old female past medical history of current every day smoker patient was brought in by her son after she was experiencing some memory loss and had experienced an and with this fall that occurred approximately 10 days ago. The son who states that over the past year she has been experiencing memory problemsover the past year. He suspects that she injured her right hand approximately 10 days ago. In the emergency department the patient was not oriented to place time or person. Imaging of her right handed reveal a minimally displaced fracture involving the third metacarpal shaft. CT of head was negative for any acute intracranial abnormality MRI did show an acute to subacute infarct within the left centrum semiovale exceeding 20 left temporal subcortical white matter and left temporal cortex. Carotid duplex showed nonstenotic plaque bilaterally. No evidence of PFO on echo KAMERON completed which showed no evidence of cardiac embolic source. Patient was continued on aspirin and statin she was evaluated by PT and OT as well as orthopedics. Orthopedics place patient in volar splint follow-up as outpatient this week. PT OT recommended ECF rehabilitation. Patient is transferred to [facility] for further treatment. Currently hemodynamically stable. We will continue with aspirin and statin. She will follow up with cardiology as outpatient for rhythm monitoring as well as with neurology. - Time Spent with Patient Total time spent providing and/or coordinating discharge services: - Discharge Medications Prescriptions: HYDROcodone/Acet 5/325 mg [Arminto 5-325 mg] 1 tab PO Q6HR PRN 2 Days #8 tablet PRN Reason: Moderate Pain Home Medications: Acetaminophen [Tylenol] 650 mg PO Q6HR PRN tablet 02/20/18 [Rx] Aspirin 81 mg PO DAILY tab.chew 02/20/18 [Rx] Atorvastatin [Lipitor] 20 mg PO HS tablet 02/20/18 [Rx] HYDROcodone/Acet 5/325 mg [Arminto 5-325 mg] 1 tab PO Q6HR PRN 2 Days #8 tablet [Rx] Allergies/Adverse Reactions: 3 Allergy/AdvReac Type Severity Reaction Status Date / Time No Known Allergies Allergy Verified 02/13/18 18:08 Date of admission: 02/16/18 08:54 Primary care physician: Maia Rios Discharging clinician: Joanna Jones Anticipated date of discharge: 02/20/18 - Constitutional Vitals: Temp Pulse Resp BP Pulse Ox 98.5 F 77 15 112/68 96 02/20/18 06:51 02/20/18 06:51 02/20/18 06:51 02/20/18 06:51 02/20/18 06:51 General appearance: Present: A&O X 2 - Patient Status Disposition: Transfer SNF Condition: Fair Functional capacity at discharge: independent ambulation Overall status at discharge: patient is progressing back to baseline - Discharge Instructions Instructions: Fall Prevention (DC) Follow Up With: Alejandro Day MD [Partnered Physician] - 02/22/18 8:50 am - Diet and Activity Activity: as per physical therapy Diet: advance to your usual diet - VTE Documentation of Mechanical Device: Intermittent pneumatic compression device
--- NOTE | 2018-02-20 08:43 | Physician Discharge Referral ---
ExtendedCare Referral Info Transfer To: [facility] Provider in Charge: Joanna Jones Provider in Charge after Transfer: PCP - Diagnosis (1) CVA (cerebral vascular accident) Priority: Primary Status: Acute (2) Right hand fracture Priority: Secondary Status: Acute (3) Dementia Priority: Secondary Status: Acute (4) Fall Priority: Secondary Status: Acute (5) UTI (urinary tract infection) Priority: Secondary Status: Resolved - Transfer Medications Prescriptions: HYDROcodone/Acet 5/325 mg [Bethel 5-325 mg] 1 tab PO Q6HR PRN 2 Days #8 tablet PRN Reason: Moderate Pain Home Medications: Acetaminophen [Tylenol] 650 mg PO Q6HR PRN tablet 02/20/18 [Rx] Aspirin 81 mg PO DAILY tab.chew 02/20/18 [Rx] Atorvastatin [Lipitor] 20 mg PO HS tablet 02/20/18 [Rx] HYDROcodone/Acet 5/325 mg [Bethel 5-325 mg] 1 tab PO Q6HR PRN 2 Days #8 tablet [Rx] Allergies/Adverse Reactions: 3 Allergy/AdvReac Type Severity Reaction Status Date / Time No Known Allergies Allergy Verified 02/13/18 18:08 - Respiratory Orders Smoking Cessation: Smoking cessation has been advised. For more information, call the [employer] Tobacco Quit Line at 2-329-MCFPNOW. - Mobility Orders Ambulate - Rehabiliation Orders Rehab Potential: Good Rehab Orders: Evaluation for Physical Therapy, Evaluation for Occupational Therapy - Diet Orders Regular CERTIFICATION: I certify that the transfer of the above named patient to an Extended Care Facility is necessary for the continuing treatment of the diagnosis listed. The above information is true and accurate reflection of patient's current condition. Confidential - Redisclosure prohibited without a patient's written consent.
== END 2018-02-20 10:26 | DRG 65 ==
LOC: 3BNU 18:43 → EMEROO 18:43 → 3BNU 23:06
PROVIDERS: ADMIT Internal Medicine Nephrology; ATTEND Internal Medicine Nephrology

== ENCOUNTER 2018-07-16 18:30 | Inpatient (IN) ==
[2018-07-17] MEDS ORDERED: Naloxone 0.4 MG/ML INJ IVP PRN (02:06)
--- NOTE | 2018-07-17 02:31 | Internal Med History&Physical ---
Addendum entered and electronically signed by Feng Zarate MD 07/17/18 19:12: I saw and evaluated the patient. I reviewed the nurse practitioner's note, performed my own physical examination and agree with findings and plan as documented in the nurse practitioner's note. Patient seen and examined in the morning of 07/17/18. Patient not oriented to place or time but does respond to her name. Patient does not seem to demonstrate slurred speech nor motor deficits. Started heparin drip for afib, not on anticoagulation previously. Will follow up with MRI in the AM. Addendum entered and electronically signed by Jose Baer CNP 07/17/18 06:20: Will hold off on Echo due to recent study completed 02/2018 with 60%EF and also hold off on carotid duplex due to recent study in 02/2018 showing nonstenotic plaque. Discussed with Dr Zarate. Addendum entered and electronically signed by Jose Baer CNP 07/17/18 03:57: Will start Ceftriaxone to cover for possible UTI due to presence of Nitrites. Urine Culture ordered. Original Note: Date of Encounter: 07/17/18 Time of Encounter: 01:30 Internal Medicine - H&P: HPI Chief complaint: Syncope and Collapse History of present illness: Ms. Lee is a 78 year old female with past medical history of CVA and dementia who presents as transfer from [facility] ER for witnessed syncope and collapse at home. ER reported per family patient became nauseated, dizzy, and briefly became unresponsive "limp all over" leaning to left side but did not fall or hit head. Family also responded once she became responsive she was slow to respond and had slurred speech. Was in rehab facility for 2 months following CVA in February 2018. History from patient is very limited due to history of dementia and no family present on admission. Patient unable to report any medical history or medications but does follow commands appropriately. Patient denies chest pain, shortness of breath, headache, weakness, numbness, tingling, vision changes, bowel or bladder changes but again is disoriented at baseline. Reportedly had returned to baseline while at ER. Past Med Surg Social Fam HX - Past Medical History Medical history: no medical history Additional medical history: TIA '05 Psychiatric history: no psych history - Past Surgical History Surgical History: no surgical history - Social History Smoking Status: Former smoker Smokeless Tobacco Status: No Alcohol use: none Drug use: none - Family History Mother Living Status: Internal Medicine - H&P: Meds Acetaminophen [Tylenol] 650 mg PO Q6HR PRN tablet 02/20/18 [Rx] Aspirin 81 mg PO DAILY tab.chew 02/20/18 [Rx] Atorvastatin [Lipitor] 20 mg PO HS tablet 02/20/18 [Rx] Citalopram Hydrobromide [Citalopram HBr] 10 mg PO DAILY 03/10/18 [History] Allergy/AdvReac Type Severity Reaction Status Date / Time Sulfa (Sulfonamide Allergy Rash Verified 07/16/18 15:00 Antibiotics) All Systems PM: A 10-system review of systems was performed and is negative for pertinent findings except as documented above in the HPI. - Constitutional Vitals: Temp Pulse Resp BP Pulse Ox 98.4 F 92 16 111/76 95 07/16/18 20:03 07/16/18 20:03 07/16/18 20:03 07/16/18 20:03 07/16/18 20:03 Exam: General: Alert and oriented to self only. Skin:Normal color, no rash, no lesions. HEENT:Pupils equal, round and reactive. Cardiovascular:Normal S1 & S2, no rubs, murmurs or gallops. No JVD. Pulse regular. Lungs:Normal breath sounds, no wheezes or crackles. Abdomen:Soft, non-tender, no rigidity. Extremities:No deformity, no edema or tenderness, no joint swelling or clubbing. GCS 14. Neurological:Normal motor skills. GCS 15. NIH stroke score of 1 due to LOC questions. Pulses:Carotid and radial pulses normal +2. Rest of the physical exam is non contributory. - Assessment and plan (1) Stroke-like symptoms Current Visit: Yes Status: Acute Assessment and plan: Currently resolved. Neurology consulted by [facility]. MRI ordered. Carotid ultrasound and echocardiogram ordered. Neuro checks. Continuous quality assurance monitor chassis. Bedside swallow prior to diet. PT/OT consult ordered. (2) Syncope and collapse Current Visit: Yes Status: Acute Assessment and plan: Plan as above. (3) Atrial fibrillation Current Visit: Yes Status: Acute Assessment and plan: New onset afib, confirmed on transferring EKG as well EKG on admission. [id number] Score 5, Heparin drip ordered, no known contraindications. Rate currently controlled. Continuous cardiac monitoring ordered. Cardiology consult ordered, will need called in a.m. Qualifiers: Atrial fibrillation type: unspecified Qualified Code(s): I48.91 - Unspecified atrial fibrillation (4) Urinary tract infection Current Visit: Yes Status: Acute Assessment and plan: UA at sending ER likely contaminated, repeat UA ordered. Qualifiers: Urinary tract infection type: site unspecified Hematuria presence: without hematuria Qualified Code(s): N39.0 - Urinary tract infection, site not specified - Time Spent With Patient Total time spent is greater than 50% in coordination of care (as documented) at patient's floor/unit and/or counseling patient:
[2018-07-17] MEDS ORDERED: *HR* Heparin 5,000 UNIT/ML VIAL IVP PRN ×2 (02:55)
[2018-07-17] MEDS ORDERED: *HR* Heparin 5,000 UNIT/ML VIAL IVP ONE (02:55)
[2018-07-17] MEDS ORDERED: Heparin 25,000 UNIT/500 ML D5W 25,000 UNIT/500 ML BAG IVC SCH (03:00)
[2018-07-17 04:09] LABS: Basophils % 0.2 %; Eosinophils % 0.1 %; Hematocrit 44.8 % (35.3-44.9); Hemoglobin 14.9 g/dL (11.5-15.4); Immature Granulocytes % 0.4 % (0-4); Lymphocytes # 2.7 K/mcL (0.6-4.6); Lymphocytes % 28.3 %; Mean Corpuscular HGB Conc 33.3 g/dL (31.6-35.5); Mean Corpuscular Hemoglobin 28.8 pg (28.0-33.3); Mean Corpuscular Volume 86.5 fL (83.0-100.0); Mean Platelet Volume 10.6 fL (9.4-12.4); Monocytes # 0.5 K/mcL (0.0-1.3); Monocytes % 4.9 %; Neutrophils # 6.4 K/mcL (1.6-8.9); Platelet Count 216 K/mcL (140-400); Red Blood Count 5.18 M/mcL (3.82-4.97); Red Cell Distribution Width 12.1 % (11.5-14.5); Segmented Neutrophils % 66.1 %
[2018-07-17 04:10] LABS: Hematocrit 45.2 % (35.3-44.9); Hemoglobin 14.9 g/dL (11.5-15.4); Mean Corpuscular Hemoglobin 28.5 pg (28.0-33.3); Mean Corpuscular Volume 86.4 fL (83.0-100.0); Mean Platelet Volume 10.6 fL (9.4-12.4); Platelet Count 218 K/mcL (140-400); Red Blood Count 5.23 M/mcL (3.82-4.97); Red Cell Distribution Width 12.2 % (11.5-14.5)
[2018-07-17 04:18] LABS: INR 1.1; Prothrombin Time 12.8 Seconds (9.4-12.1)
[2018-07-17 04:31] LABS: BUN/Creatinine Ratio 23 (6-26); Blood Urea Nitrogen 18 mg/dL (8-23); Calcium 9.8 mg/dL (8.6-10.3); Carbon Dioxide 26 mEq/L (23-29); Chloride 104 mEq/L (98-107); Glucose 156 mg/dL (70-105); Osmolality,Calculated 291 (280-300); Potassium 3.8 mEq/L (3.5-5.1); Sodium 138 mEq/L (136-145); eGFR For Non-African Americans > 60 (> 60)
--- NOTE | 2018-07-17 07:55 | Neurology - Consult Note ---
<Munir Gaytan - Last Filed: 07/17/18 14:43> Date of Encounter: 07/17/18 Time of Encounter: 07:55 Assessment and Plan (1) Syncope Current Visit: Yes Status: Acute Patient transferred from [facility] Staff reported the patient became "limp all over" with leaning to her left, had slurred speech, decreased responsiveness, and loss of consciousness. Patient did not fall or history her head. CT brain revealed no acute intracranial abnormality with diffuse atrophic changes suggesting chronic microvascular ischemia and an old left frontal infarct. Patient's neurologic status returned to baseline in the ED without treatment. Carotid Doppler 02/14/18 revealed bilateral nonstenotic plaque. KAMERON on 02/17/18 revealed normal LVEF 60%, moderate non-mobile plaque formation in the descending thoracic aorta with no plaque formation or thrombus in the LA, ascending aorta, or aortic arch Patient was started on heparin drip for anticoagulation. Switched to Xarelto. MRI brain pending Qualifiers: Syncope type: unspecified Qualified Code(s): R55 - Syncope and collapse (2) Atrial fibrillation Current Visit: Yes Status: Acute Management per primary team Qualifiers: Atrial fibrillation type: unspecified Qualified Code(s): I48.91 - Unspecified atrial fibrillation (3) Urinary tract infection Current Visit: Yes Status: Acute Management per primary team Qualifiers: Urinary tract infection type: site unspecified Hematuria presence: without hematuria Qualified Code(s): N39.0 - Urinary tract infection, site not specified (4) History of CVA (cerebrovascular accident) Current Visit: No Status: Chronic Patient with history of dementia and previous CVA in February 2018 without neurologic deficits. Patient's neurological status returned to baseline in the ED without treatment. (5) Dementia Current Visit: No Status: Chronic longterm resident, dementia at baseline Continue current management Qualifiers: Dementia type: unspecified type Dementia behavioral disturbance: without behavioral disturbance Qualified Code(s): F03.90 - Unspecified dementia without behavioral disturbance History of Present Illness Chief complaint: Syncope HPI: Ms. Lee is a 78 year old female with a past medical history of dementia and previous CVA in February 2018 who was transferred from [facility] at [facility]. Staff reported the patient became "limp all o sameera" with leaning to her left, had slurred speech, decreased responsiveness, and loss of consciousness. Patient did not fall or hit her head. In the ED, CT brain revealed no acute intracranial abnormality with diffuse atrophic changes suggesting chronic microvascular ischemia and an old left frontal infarct. Patient was found to be in A. fib RVR was started on heparin drip for anticoagulation. Patient's neurological status returned to baseline in the ED without treatment. Neurology was consulted for further recommendations. Past Med Surg Social Fam HX - Past Medical History Medical history: no medical history Additional medical history: TIA '05 Psychiatric history: no psych history - Past Surgical History Surgical History: no surgical history - Social History Smoking Status: Former smoker Smokeless Tobacco Status: No Alcohol use: none Drug use: none - Family History Mother Living Status: Medications and Allergies No Known Home Drugs 07/17/18 [History] Allergy/AdvReac Type Severity Reaction Status Date / Time Sulfa (Sulfonamide Allergy Rash Verified 07/16/18 15:00 Antibiotics) ROS unobtainable: due to mental status All Systems: The remainder of the systems were reviewed and are negative Physical Examination - Vital Signs Vital Signs: Initial Vital Signs Temp Pulse Resp BP Pulse Ox 98.4 F 92 16 111/76 95 07/16/18 20:03 07/16/18 20:03 07/16/18 20:03 07/16/18 20:03 07/16/18 20:03 - Constitutional General appearance: comfortable (smiling, ) - Neurologic Sensorimotor examination: intact Detailed motor examination: grossly full strength in all extremities, full strength in all major muscle groups Motor examination - right side: 5/5: deltoids, biceps, triceps, wrist flexion, wrist extension, position classification specialist, hip flexors, tibialis Anterior, quadriceps, toe extension (EHL), plantarflexion Motor examination - left side: 5/5: deltoids, biceps, triceps, wrist flexion, wrist extension, hip flexors, position classification specialist, quadriceps, tibialis Anterior, toe extension (EHL), plantarflexion Detailed sensory examination: intact, light touch Reflexes: Biceps: 2+, Triceps: 2+, Brachioradialis: 2+, Patella: 2+, Achilles: 2+ Mental Status Examination: awake, alert, oriented to person, follows commands appropriately, lucid, makes eye contact, follows simple commands, localizes noxious stimulation, inattentive, demented, impaired memory, impaired cognition, cognitive impairment, not reliable historian Cranial nerve examination: PERRL, EOMI, visual leyva intact, mastication intact, no facial asymmetry is present, tongue protrudes midline Cerebellar examination: no dysmetria, no difficulty with rapid alternating movements Results - Laboratory Findings CBC and BMP: 07/17/18 03:30 12 03:30 Abnormal lab findings: Abnormal lab results RBC 5.23 M/mcL (3.82-4.97) H 07/17/18 03:30 Hct 45.2 % (35.3-44.9) H 07/17/18 03:30 PT 12.8 Seconds (9.4-12.1) H 07/17/18 03:30 Heparin Anti-Xa, Unfract 0.00 IU/mL (0.30-0.70) L 07/17/18 03:30 Glucose 156 mg/dL (70-105) H 07/17/18 03:30 Consult Discharge Plan - Plan Referrals: Rosetta Pugh MD [Primary Care Provider] - <Mindi Wray I - Last Filed: 07/17/18 16:06> Date of Encounter: 07/17/18 Assessment and Plan (1) Syncope Current Visit: Yes Status: Acute Pt was seen and examined, my medical decision was reviewed with the Resident Physician, I agree with the documented findings, disposition and treatment plas as described except to the extent set forth below. Baseline patient has dementia is very difficult to get any history of it no focal findings on examination suggest syncopal workup also get an MRI of the brain to make sure no acute vascular abnormality Mindi Wray MD Qualifiers: Syncope type: unspecified Qualified Code(s): R55 - Syncope and collapse History of Present Illness HPI: Ms. Lee is a 78 year old female All Systems: The remainder of the systems were reviewed and are negative Physical Examination - Vital Signs Vital Signs: Initial Vital Signs Temp Pulse Resp BP Pulse Ox 98.4 F 92 16 111/76 95 07/16/18 20:03 07/16/18 20:03 07/16/18 20:03 07/16/18 20:03 07/16/18 20:03 - Exam Exam: GENERAL: Comfortable in no acute distress HEENT: Normal LUNGS: CTA HEART: RRR, S1 S2 Audible, no murmur EXTREMITIES: No Pedal edema. DETAILED NEUROLOGICAL EXAMINATION: MENTAL STATUS: Oriented to person, only , decreased attention span, decreased short-term memory not able to give much information on history Cranial Nerve Examination: CN - II: Visual Acuity, Field of Vision Normal, Fundus examination: No disk edema, Pupils- size shape reaction to light and accommodation: All normal. CN III, IV, : External ocular movements were intact, Pupils were reactive, Nodrooping of the eyelids CN V: Sensation over the face to light touch and pinprick all normal. Corneal reflexes not tested, jaw jerk normal. CN VII: No facial asymmetry, no flattening of nasolabial folds, no difficulty in closing the eyes, no loss of forehead wrinkles, no difficulty in eye-closure, frowning raising eyebrows. CNVIII: No significant hearing loss CN IX, X: Uvula centralized not deviated, Gag reflex: Not tested CN X1: Sternocleidomastoid, trapezius, normal or evidence of any weakness. CN X11: No Dysarthria, no wasting or fibrilation f tongue muscles, no deviation, tongue muscle strength normal. Motor examination: No hypertrophy, tone was normal, power grade 0-5 Upper limbs Proximal- No difficulty in lifting the arms above the head. Distal- No weakness in distal muscles On formal testing 5/5 all over Lower limbs On formal testing 5/5 all over Coordination: [id number] normal. Target pursuit normal finger tapping normal, Rapid alternating moment of wrist normal Sensory system: Superficial sensations- Touch normal. Pain- Pinprick, Temperature all normal, Deep sensation normal, Joint position sense normal. Cortical sensation, Tactile discrimination, localization and extinction all normal. Deep tendon reflexes. Symmetrical bilateral, No evidence of Babinski. No sign of meningeal irritation Gait Examination: Deferred - Constitutional General appearance: comfortable Results - Laboratory Findings CBC and BMP: 07/17/18 03:30 07/17/18 03:30 Abnormal lab findings: Abnormal lab results RBC 5.23 M/mcL (3.82-4.97) H 07/17/18 03:30 Hct 45.2 % (35.3-44.9) H 07/17/18 03:30 PT 12.8 Seconds (9.4-12.1) H 07/17/18 03:30 Glucose 156 mg/dL (70-105) H 07/17/18 03:30
[2018-07-17] MEDS: cefTRIAXone 1,000 MG in Water for inj. (sterile) 20 ML 10 ML IVP SCH (08:44)
--- NOTE | 2018-07-17 13:25 | Internal Med Progress Note ---
Hospitalist Progress Note - Encounter Date of Encounter: 07/17/18 Time of Encounter: 13:23 - Subjective Interval History: Ms. Lee is a 78 year old female with past medical history of CVA, HTN, HLD and dementia who presented to our floor as transfer from [facility] ER for witnessed syncope and collapse at home. ER reported per family patient became nauseated, dizzy, and briefly became unresponsive "limp all over" leaning to left side but did not fall or hit head. Family also responded once she became responsive she was slow to respond and had slurred speech. Was in rehab facility for 2 months following CVA in February 2018. She also happened to have acute new onset Afib. She denied any CP / SOB. No abd pain. She is alert, awake and oriented to self only.. Still getting agitated / confused at times. - Exam Vitals: Temp Pulse Resp BP Pulse Ox 97.5 F L 83 16 95/62 98 07/17/18 12:07 07/17/18 12:07 07/17/18 12:07 07/17/18 12:07 07/17/18 12:07 Exam: Gen: Alert, awake, Oriented to person Chest: Diminished breath sounds B/L, No wheezing, No crackles, No rales Heart: S1S2+ Afib, No murmurs Abd: Soft, NT, BS +, No organomegaly Ext: No edema, pulses are palpable, No calf tenderness Neuro : A;ert, awake and O to self. No motor sensory deficit noticed. Skin: No rash. - Assessment and Plan (1) Syncope and collapse Current Visit: Yes Status: Acute Assessment and Plan: Most likely due to vaso vagal as well as due to advanced dementia Cont on tele EKG showed Afib HR # 68, no acute ischemic changes noticed 2 D Echo ordered cont ASA, Statin added BB (2) Stroke-like symptoms Current Visit: Yes Status: Acute Assessment and Plan: Questionable stroke like symptoms No more slurred speech high risk pt due to new onset Afib CHADSVASC score 4-5, started on Eliquis for anti coag will f/u on MRI of brain (3) Acute delirium Current Visit: Yes Status: Acute Assessment and Plan: mostly due to advanced dementia however concerning for CVA too espcially with stroke like symptoms and new onset A fib check neuro checks q4hr Neuro consulted will f/u on MRI Haldol PRN for delirium Sitter 1 : 1 Patient does need to stay in the hospital more than 2 midnights due to her complex medical problems. So we will change her to full admission today. I did review my colleague Dr. Zarate' H & P including HPI, PMH, PSH, FH, SH, and ROS no changes noticed (4) Atrial fibrillation Current Visit: Yes Status: Acute Assessment and Plan: New onset afib [id number] Score 5 started on low dose Metoprolol 12.5 BID Started Eliquis for anti coag (5) Urinary tract infection Current Visit: Yes Status: Acute Assessment and Plan: UA at sending ER likely contaminated, repeat UA ordered continue empirical abx for now - Time Spent with Patient Total time spent is greater than 50% in coordination of care (as documented) at patient's floor/unit and/or counseling patient: Internal Medicine: Result - Labs CBC & Chem 7: 07/17/18 03:30 07/17/18 03:30 Labs: Short CBC 07/17/18 07/17/18 Range/Units 03:30 03:30 WBC 9.7 9.9 (4.3-11.1) K/mcL Hgb 14.9 14.9 (11.5-15.4) g/dL Hct 44.8 45.2 H (35.3-44.9) % Plt Count 216 218 (140-400) K/mcL Neutrophils # 6.4 (1.6-8.9) K/mcL BMP 07/17/18 03:30 Sodium 138 Potassium 3.8 Chloride 104 Carbon Dioxide 26 BUN 18 Creatinine 0.78 Glucose 156 H Calcium 9.8 - ABG Interpretation ABG results: PT/INR, D-dimer PT 12.8 Seconds (9.4-12.1) H 07/17/18 03:30 Consult Discharge Plan - Plan Referrals: Rosetta Pugh MD [Primary Care Provider] - __ (4) Atrial fibrillation Qualifiers: Atrial fibrillation type: unspecified Qualified Code(s): I48.91 - Unspecified atrial fibrillation (5) Urinary tract infection Qualifiers: Urinary tract infection type: site unspecified Hematuria presence: without hematuria Qualified Code(s): N39.0 - Urinary tract infection, site not specified
[2018-07-17] MEDS: Aspirin 81 MG TAB.CHEW PO SCH (13:38)
[2018-07-17] MEDS: Haloperidol Lactate 5 MG/ML VIAL IVP PRN (13:38)
[2018-07-17] MEDS ORDERED: Haloperidol Lactate 5 MG/ML VIAL IVP ONE (14:33)
--- NOTE | 2018-07-17 16:41 | Electrocardiograph Report ---
[place] [id number] Test Date: 2018-07-17 Pat Name: Alexa Lee Department: 113 Room: 3B12 Gender: F [employer]: : 1940 Requested By: Jose Baer Order Number: [id number] Reading MD: Tanya Daniel Measurements Intervals [place] Rate: 68 P: FL: 0 QRS: -17 QRSD: 81 T: 75 QT: 370 QTc: 387 Interpretive Statements ATRIAL FIBRILLATION MODERATE VOLTAGE CRITERIA FOR LVH, CONSIDER NORMAL VARIANT NONSPECIFIC ST & T-WAVE ABNORMALITY ABNORMAL RHYTHM ECG Electronically Signed On 07-17-2018 16:39:17 EST by Tanya Daniel
[2018-07-17] MEDS: Apixaban 5 MG TABLET PO SCH (20:19)
[2018-07-18 05:09] LABS: Chol/HDL Ratio 5.8 (0-4.9)
[2018-07-18] MEDS: Aspirin 81 MG TAB.CHEW PO SCH (08:15)
[2018-07-18] MEDS: Apixaban 5 MG TABLET PO SCH ×2 (08:16→19:59)
[2018-07-18] MEDS: cefTRIAXone 1,000 MG in Water for inj. (sterile) 20 ML 10 ML IVP SCH (08:17)
--- NOTE | 2018-07-18 08:20 | Neurology Progress Note ---
<Mindi Wray I - Last Filed: 07/18/18 15:40> Date of Encounter: 07/18/18 Assessment and Plan (1) Syncope Current Visit: Yes Status: Acute Pt was seen and examined, my medical decision was reviewed with the Resident Physician, I agree with the documented findings, disposition and treatment plas as described except to the extent set forth below. So far stroke workup is negative. No evidence of any seizures Other workup is as per primary team We will sign off call if needed Mindi Wray MD Qualifiers: Syncope type: unspecified Qualified Code(s): R55 - Syncope and collapse Objective - Constitutional Vitals: Temp Pulse Resp BP Pulse Ox 98.0 F 76 15 112/76 96 07/18/18 11:24 07/18/18 11:24 07/18/18 11:24 07/18/18 11:24 07/18/18 11:24 Results - Laboratory Findings CBC and BMP: 07/17/18 03:30 07/17/18 03:30 Abnormal lab findings: Abnormal lab results RBC 5.23 M/mcL (3.82-4.97) H 07/17/18 03:30 Hct 45.2 % (35.3-44.9) H 07/17/18 03:30 PT 12.8 Seconds (9.4-12.1) H 07/17/18 03:30 Glucose 156 mg/dL (70-105) H 07/17/18 03:30 Cholesterol 255 mg/dL (< 200) H 07/18/18 03:47 LDL Cholesterol, Calc 189 mg/dL (0-99) H 07/18/18 03:47 Cholesterol/HDL Ratio 5.8 (0-4.9) H 07/18/18 03:47 Consult Discharge Plan - Plan Referrals: Rosetta Pugh MD [Primary Care Provider] - <Munir Gaytan - Last Filed: 07/18/18 15:52> Date of Encounter: 07/18/18 Time of Encounter: 08:18 Assessment and Plan (1) Syncope Current Visit: Yes Status: Acute Patient transferred from [facility] after syncopal event at alf. Staff reported the patient became "limp all over" with leaning to her left, had slurred speech, decreased responsiveness, and loss of consciousness. Patient did not fall or history her head. CT brain revealed no acute intracranial abnormality with diffuse atrophic changes suggesting chronic microvascular ischemia and an old left frontal infarct. Patient's neurologic status returned to baseline in the ED without treatment. Carotid Doppler 02/14/18 revealed bilateral nonstenotic plaque. KAMERON on 02/17/18 revealed normal LVEF 60%, moderate non-mobile plaque formation in the descending thoracic aorta with no plaque formation or thrombus in the LA, ascending aorta, or aortic arch. MRI brain revealed no areas of restricted diffusion to suggest an acute ischemic event. Patient was started on Xarelto for anticoagulation. Continue aspirin and statin. Qualifiers: Syncope type: unspecified Qualified Code(s): R55 - Syncope and collapse (2) Atrial fibrillation Current Visit: Yes Status: Acute Management per primary team Qualifiers: Atrial fibrillation type: unspecified Qualified Code(s): I48.91 - Unspecified atrial fibrillation (3) Urinary tract infection Current Visit: Yes Status: Acute Management per primary team Qualifiers: Urinary tract infection type: site unspecified Hematuria presence: without hematuria Qualified Code(s): N39.0 - Urinary tract infection, site not specified (4) History of CVA (cerebrovascular accident) Current Visit: No Status: Chronic Patient with history of dementia and previous CVA in February 2018 without neurologic deficits. Patient's neurological status returned to baseline in the ED without treatment. (5) Dementia Current Visit: No Status: Chronic group home resident, dementia at baseline Continue current management Qualifiers: Dementia type: unspecified type Dementia behavioral disturbance: without behavioral disturbance Qualified Code(s): F03.90 - Unspecified dementia without behavioral disturbance Subjective Principal diagnosis: Syncope Interval history: Patient seen and examined resting comfortably in bed. Patient had decreased urinary output since yesterday which may be adding to her baseline altered mentation. Sitter no longer at bedside. Objective - Constitutional Vitals: Temp Pulse Resp BP Pulse Ox 97.3 F L 82 16 136/88 97 07/18/18 07:14 07/18/18 07:14 07/18/18 07:14 07/18/18 07:14 07/18/18 07:14 General appearance: Present: cooperative, A&O X 1, pleasant, no acute distress - Head Head exam: Present: atraumatic, normocephalic - Eye Eye exam: Present: PERRL, conjuntiva pink, sclera anicteric Pupils: Present: PERRL - Extremities Exam Extremities exam: Present: warm, radial pulses palpable and symmetrical - Neurological Exam Sensorimotor examination: Present: intact Motor Examination: Present: grossly full strength in all extremities, full strength in all major muscle groups Motor examination - right side: 55: deltoids, biceps, triceps, wrist flexion, wrist extension, hse advisor, hip flexors, tibialis Anterior, quadriceps, toe extension (EHL), plantarflexion Motor examination - left side: 55: deltoids, biceps, triceps, wrist flexion, wrist extension, hip flexors, hse advisor, quadriceps, tibialis Anterior, toe extension (EHL), plantarflexion Sensation intact: Present: intact, light touch Reflexes: Biceps: 2+, Triceps: 2+, Brachioradialis: 2+, Patella: 2+, Achilles: 2+ Mental Status Examination: Present: awake, alert, oriented to person, follows commands appropriately, lucid, makes eye contact, follows simple commands, lo calizes noxious stimulation, inattentive, demented, impaired memory, impaired cognition, cognitive impairment, not reliable historian Cranial nerve examination: Present: PERRL, EOMI, visual leyva intact, mastication intact, no facial asymmetry is present, tongue protrudes midline Cerebellar examination: Present: no dysmetria, no difficulty with rapid alternating movements Results - Laboratory Findings CBC and BMP: 07/17/18 03:30 07/17/18 03:30 Abnormal lab findings: Abnormal lab results RBC 5.23 M/mcL (3.82-4.97) H 07/17/18 03:30 Hct 45.2 % (35.3-44.9) H 07/17/18 03:30 PT 12.8 Seconds (9.4-12.1) H 07/17/18 03:30 Glucose 156 mg/dL (70-105) H 07/17/18 03:30 Cholesterol 255 mg/dL (< 200) H 07/18/18 03:47 LDL Cholesterol, Calc 189 mg/dL (0-99) H 07/18/18 03:47 Cholesterol/HDL Ratio 5.8 (0-4.9) H 07/18/18 03:47
--- NOTE | 2018-07-18 10:31 | Internal Med Progress Note ---
Hospitalist Progress Note - Encounter Date of Encounter: 07/18/18 Time of Encounter: 10:30 - Exam Vitals: Temp Pulse Resp BP Pulse Ox 97.3 F L 82 16 136/88 97 07/18/18 07:14 07/18/18 07:14 07/18/18 07:14 07/18/18 07:14 07/18/18 07:14 Exam: Gen: Alert, awake, Oriented to person Chest: Diminished breath sounds B/L, No wheezing, No crackles, No rales Heart: S1S2+ Afib, No murmurs Abd: Soft, NT, BS +, No organomegaly Ext: No edema, pulses are palpable, No calf tenderness Neuro : A;ert, awake and O to self. No motor sensory deficit noticed. Skin: No rash. - Assessment and Plan (1) Syncope and collapse Current Visit: Yes Status: Acute Assessment and Plan: Most likely due to vaso vagal as well as due to advanced dementia No evidence of stroke and seizures. Neuro signed off cont ASA, Statin added BB (2) Stroke-like symptoms Current Visit: Yes Status: Acute Assessment and Plan: Questionable stroke like symptoms No more slurred speech high risk pt due to new onset Afib CHADSVASC score 4-5, started on Eliquis for anti coag Stroke workup negative (3) Atrial fibrillation Current Visit: Yes Status: Acute Assessment and Plan: New onset afib [id number] Score 5 started on low dose Metoprolol 12.5 BID Started Eliquis for anti coag (4) Urinary tract infection Current Visit: Yes Status: Acute Assessment and Plan: UA at sending ER likely contaminated, repeat UA ordered continue empirical abx for now (5) Acute delirium Current Visit: Yes Status: Acute Assessment and Plan: mostly due to advanced dementia Resolved. Possibly 2/2 to dehydration vs UTI DVT Prophylaxis: Continue eliquis - Time Spent with Patient Total time spent is greater than 50% in coordination of care (as documented) at patient's floor/unit and/or counseling patient: Internal Medicine: Result - Labs CBC & Chem 7: 07/17/18 03:30 07/17/18 03:30 - ABG Interpretation ABG results: PT/INR, D-dimer PT 12.8 Seconds (9.4-12.1) H 07/17/18 03:30 - Impressions Impressions Brain MRI 07/17/18 02:21 IMPRESSION: Limited exam as discussed above. There are no areas of restricted diffusion to suggest an acute ischemic event. D/ / 07/17/2018 15:24:27 Polina Flores MD / [email or web address] Interpreting Provider: Polina Flores MD Consult Discharge Plan - Plan Referrals: Rosetta Pugh MD [Primary Care Provider] - (3) Atrial fibrillation Qualifiers: Atrial fibrillation type: unspecified Qualified Code(s): I48.91 - Unspecified atrial fibrillation (4) Urinary tract infection Qualifiers: Urinary tract infection type: site unspecified Hematuria presence: without hematuria Qualified Code(s): N39.0 - Urinary tract infection, site not s pecified
[2018-07-18] MEDS: Haloperidol Lactate 5 MG/ML VIAL IVP PRN (17:04)
[2018-07-19] MEDS: cefTRIAXone 1,000 MG in Water for inj. (sterile) 20 ML 10 ML IVP SCH (08:56)
[2018-07-19] MEDS: Aspirin 81 MG TAB.CHEW PO SCH (08:56)
[2018-07-19] MEDS: Apixaban 5 MG TABLET PO SCH ×2 (08:56→19:51)
--- NOTE | 2018-07-19 09:31 | Internal Med Progress Note ---
Hospitalist Progress Note - Encounter Date of Encounter: 07/19/18 Time of Encounter: 09:30 - Exam Vitals: Temp Pulse Resp BP Pulse Ox 98.0 F 76 18 130/76 98 07/19/18 07:40 07/19/18 07:40 07/19/18 07:40 07/19/18 07:40 07/19/18 07:40 Exam: Gen: Alert, awake, Oriented to person Chest: Diminished breath sounds B/L, No wheezing, No crackles, No rales Heart: S1S2+ Afib, No murmurs Abd: Soft, NT, BS +, No organomegaly Ext: No edema, pulses are palpable, No calf tenderness Neuro : A;ert, awake and O to self. No motor sensory deficit noticed. Skin: No rash. - Assessment and Plan (1) Syncope and collapse Current Visit: Yes Status: Acute Assessment and Plan: Most likely due to vaso vagal as well as due to advanced dementia No evidence of stroke and seizures. Neuro signed off. Improved with hydration cont ASA, Statin added BB (2) Stroke-like symptoms Current Visit: Yes Status: Acute Assessment and Plan: Questionable stroke like symptoms No more slurred speech high risk pt due to new onset Afib CHADSVASC score 4-5, started on Eliquis for anti coag Stroke workup negative (3) Atrial fibrillation Current Visit: Yes Status: Acute Assessment and Plan: New onset afib [id number] Score 5 started on low dose Metoprolol 12.5 BID Started Eliquis for anti coag (4) Urinary tract infection Current Visit: Yes Status: Acute Assessment and Plan: UA at sending ER likely contaminated, repeat UA ordered continue empirical abx for now (5) Acute delirium Current Visit: Yes Status: Acute Assessment and Plan: mostly due to advanced dementia Resolved. Possibly 2/2 to dehydration vs UTI DVT Prophylaxis: Continue eliquis - Time Spent with Patient Total time spent is greater than 50% in coordination of care (as documented) at patient's floor/unit and/or counseling patient: Internal Medicine: Result - Labs CBC & Chem 7: 07/17/18 03:30 07/17/18 03:30 - ABG Interpretation ABG results: PT/INR, D-dimer PT 12.8 Seconds (9.4-12.1) H 07/17/18 03:30 Consult Discharge Plan - Plan Referrals: Rosetta Pugh MD [Primary Care Provider] - (3) Atrial fibrillation Qualifiers: Atrial fibrillation type: unspecified Qualified Code(s): I48.91 - Unspecified atrial fibrillation (4) Urinary tract infection Qualifiers: Urinary tract infection type: site unspecified Hematuria presence: without hematuria Qualified Code(s): N39.0 - Urinary tract infection, site not specified
[2018-07-20] MEDS: cefTRIAXone 1,000 MG in Water for inj. (sterile) 20 ML 10 ML IVP SCH (08:21)
[2018-07-20] MEDS: Apixaban 5 MG TABLET PO SCH (08:21)
[2018-07-20] MEDS: Aspirin 81 MG TAB.CHEW PO SCH (08:21)
--- NOTE | 2018-07-20 11:00 | Discharge Summary ---
Date of Encounter: 07/20/18 Time of Encounter: 11:00 - Discharge Diagnosis (1) Syncope and collapse Priority: Primary Status: Acute Assessment and Plan: 78 year old female with past medical history of CVA and dementia who presents as transfer from [facility] ER for witnessed syncope and collapse at home. ER reported per family patient became nauseated, dizzy, and briefly became unresponsive "limp all over" leaning to left side but did not fall or hit head. Family also responded once she became responsive she was slow to respond and had slurred speech. Was in rehab facility for 2 months following CVA in February 2018. History from patient is very limited due to history of dementia and no family present on admission. She was admitted to rule out stroke. Stroke work up was negative. There was no evidence of seizures as well. Her syncopal episode was deemed likely vasovagal vs UTI as well as due to advanced dementia. She completed a course of ceftriaxone and improved with hydration. She was found to have new afib and started on eliquis and beta blockers. She was discharged in a stable condition. 35minutes was spent discharging this patient (2) Stroke-like symptoms Priority: Primary Status: Acute (3) Atrial fibrillation Priority: Primary Status: Acute Qualifiers: Atrial fibrillation type: paroxysmal Qualified Code(s): I48.0 - Paroxysmal atrial fibrillation (4) Urinary tract infection Priority: Primary Status: Acute Qualifiers: Urinary tract infection type: site unspecified Hematuria presence: without hematuria Qualified Code(s): N39.0 - Urinary tract infection, site not specified (5) Acute delirium Priority: Primary Status: Acute Hospital course: Ms. Lee is a 78 year old female - Time Spent with Patient Total time spent providing and/or coordinating discharge services: - Discharge Medications Prescriptions: Apixaban [Eliquis] 5 mg PO BID 30 Days #60 tablet Aspirin 81 mg PO DAILY 30 Days #30 tab.chew Atorvastatin [Lipitor] 20 mg PO HS 30 Days #30 tablet Metoprolol [Lopressor] 12.5 mg PO BID 30 Days #60 tablet Home Medications: Apixaban [Eliquis] 5 mg PO BID 30 Days #60 tablet 07/20/18 [Rx] Aspirin 81 mg PO DAILY 30 Days #30 tab.chew 07/20/18 [Rx] Atorvastatin [Lipitor] 20 mg PO HS 30 Days #30 tablet 07/20/18 [Rx] Metoprolol [Lopressor] 12.5 mg PO BID 30 Days #60 tablet 07/20/18 [Rx] Allergies/Adverse Reactions: Allergy/AdvReac Type Severity Reaction Status Date / Time Sulfa (Sulfonamide Allergy Rash Verified 07/16/18 15:00 Antibiotics) Date of admission: 07/17/18 15:49 Primary care physician: Rosetta Pugh Consults: 07/17/18 02:19 Consult to Neurology [CONS] Routine Consulting Provider: Neurology [facility] Reason for Consult: Transfer from [facility] ER, ER spoke to Dr Wray who agreed to see patient in consult for syncope and collapse, and stroke like symptoms. Call Completed: Yes 07/17/18 03:10 Consult to Physical Therapy [CONS] Routine Comment: Evaluate, develop and implement POC Reason for Consult: Syncope and collapse with stroke like symptoms. Does patient have active BEDREST order?: No Is patient medically & hemodynamically stable?: Yes 07/17/18 13:11 Consult to Check Embosser [CONS] Routine Reason for SW Consult: SNF/ECF PLACEMENT - Constitutional Vitals: Temp Pulse Resp BP Pulse Ox 97.7 F 57 16 136/80 95 07/20/18 03:00 07/20/18 03:00 07/20/18 03:00 07/20/18 03:00 07/20/18 03:00 General appearance: Present: A&O X 2 Exam: Gen: Alert, awake, Oriented to person Chest: Diminished breath sounds B/L, No wheezing, No crackles, No rales Heart: S1S2+ Afib, No murmurs Abd: Soft, NT, BS +, No organomegaly Ext: No edema, pulses are palpable, No calf tenderness Neuro : A;ert, awake and O to self. No motor sensory deficit noticed. Skin: No rash. - Patient Status Disposition: Transfer LTC - Discharge Instructions Instructions: Metoprolol (By mouth), Aspirin (By mouth), Atorvastatin (By mouth), Apixaban (By mouth), Atrial Fibrillation (DC), Urinary Tract Infection in Women (DC), Syncope (DC) Follow Up With: Rosetta Pugh MD [Primary Care Provider] -
--- NOTE | 2018-07-20 11:01 | Physician Discharge Referral ---
- Diagnosis (1) Syncope and collapse Priority: Primary Status: Acute (2) Stroke-like symptoms Priority: Primary Status: Acute (3) Atrial fibrillation Priority: Primary Status: Acute (4) Urinary tract infection Priority: Primary Status: Acute (5) Acute delirium Priority: Primary Status: Acute - Transfer Medications Prescriptions: Apixaban [Eliquis] 5 mg PO BID 30 Days #60 tablet Aspirin 81 mg PO DAILY 30 Days #30 tab.chew Atorvastatin [Lipitor] 20 mg PO HS 30 Days #30 tablet Metoprolol [Lopressor] 12.5 mg PO BID 30 Days #60 tablet Home Medications: Apixaban [Eliquis] 5 mg PO BID 30 Days #60 tablet 07/20/18 [Rx] Aspirin 81 mg PO DAILY 30 Days #30 tab.chew 07/20/18 [Rx] Atorvastatin [Lipitor] 20 mg PO HS 30 Days #30 tablet 07/20/18 [Rx] Metoprolol [Lopressor] 12.5 mg PO BID 30 Days #60 tablet 07/20/18 [Rx] Allergies/Adverse Reactions: Allergy/AdvReac Type Severity Reaction Status Date / Time Sulfa (Sulfonamide Allergy Rash Verified 07/16/18 15:00 Antibiotics) - Respiratory Orders Smoking Cessation: Smoking cessation has been advised. For more information, call the [place] Tobacco Quit Line at 7-261-HFDVNOW. - Mobility Orders Ambulate - Rehabiliation Orders Rehab Orders: Evaluation for Physical Therapy - Diet Orders Cardiac CERTIFICATION: I certify that the transfer of the above named patient to an Extended Care Facility is necessary for the continuing treatment of the diagnosis listed. The above information is true and accurate reflection of patient's current condition. Confidential - Redisclosure prohibited without a patient's written consent.
[2018-07-20 12:14] VITALS: BP 137/70
== END 2018-07-20 12:47 | DRG 309 ==
LOC: 3BNU → SUATTDRO 19:41
PROVIDERS: ADMIT General Practice; ATTEND Family Medicine

== ENCOUNTER 2019-05-24 17:16 | Observation (INO) ==
[2019-05-24 19:10] LABS: Hematocrit 28.1 % (35.3-44.9); Hemoglobin 9.2 g/dL (11.5-15.4)
[2019-05-24 19:19] LABS: INR 1.4; Prothrombin Time 16.2 Seconds (9.4-12.1)
[2019-05-24 19:21] LABS: Activated Partial Thrombo Time 35.3 Seconds (26.0-36.0)
[2019-05-24 19:29] LABS: BUN/Creatinine Ratio 18 (6-26); Blood Urea Nitrogen 17 mg/dL (8-23); Calcium 8.7 mg/dL (8.6-10.3); Carbon Dioxide 28 mEq/L (23-29); Chloride 106 mEq/L (98-107); Glucose 207 mg/dL (70-105); Osmolality,Calculated 296 (280-300); Potassium 3.5 mEq/L (3.5-5.1); Sodium 139 mEq/L (136-145); eGFR For African Americans > 60 (> 60); eGFR For Non-African Americans 55 (> 60)
[2019-05-24] MEDS ORDERED: ceFAZolin 1,000 MG in Water for inj. (sterile) 10 ML IVP ONE (19:35)
[2019-05-24] MEDS ORDERED: Naloxone 0.4 MG/ML INJ IVP PRN (22:22)
[2019-05-24] MEDS ORDERED: 0.9 % Sodium Chloride 1,000 ML IVC SCH (23:15)
[2019-05-24 23:27] LABS: Alanine Aminotransferase 6 Units/L (7-52); Albumin 3.3 g/dL (3.5-5.7); Albumin/Globulin Ratio 1.7 (1.1-2.2); Alkaline Phosphatase 86 Units/L (34-104); Aspartate Amino Transferase 8 Units/L (13-39); BUN/Creatinine Ratio 17 (6-26); Bilirubin,Total 0.6 mg/dL (0.3-1.0); Blood Urea Nitrogen 16 mg/dL (8-23); Calcium 8.9 mg/dL (8.6-10.3); Carbon Dioxide 29 mEq/L (23-29); Chloride 106 mEq/L (98-107); Glucose 149 mg/dL (70-105); Osmolality,Calculated 292 (280-300); Potassium 3.5 mEq/L (3.5-5.1); Sodium 139 mEq/L (136-145); Total Protein 5.3 g/dL (6.4-8.9); eGFR For African Americans > 60 (> 60); eGFR For Non-African Americans 59 (> 60)
[2019-05-25 05:52] LABS: Basophils % 0.3 %; Eosinophils # 0.1 K/mcL (0.0-0.6); Eosinophils % 0.7 %; Hematocrit 26.9 % (35.3-44.9); Hemoglobin 8.8 g/dL (11.5-15.4); Immature Granulocytes % 0.5 % (0-4); Lymphocytes # 3.9 K/mcL (0.6-4.6); Lymphocytes % 33.5 %; Mean Corpuscular HGB Conc 32.7 g/dL (31.6-35.5); Mean Corpuscular Hemoglobin 29.4 pg (28.0-33.3); Mean Platelet Volume 10.5 fL (9.4-12.4); Monocytes % 8.2 %; Neutrophils # 6.6 K/mcL (1.6-8.9); Platelet Count 199 K/mcL (140-400); Red Blood Count 2.99 M/mcL (3.82-4.97); Red Cell Distribution Width 12.7 % (11.5-14.5); Segmented Neutrophils % 56.8 %; White Blood Count 11.6 K/mcL (4.3-11.1)
[2019-05-25 07:11] LABS: % Iron Saturation 6 % (15-50); Iron 17 mcg/dL (50-170); Transferrin 196 mg/dL (203-362)
[2019-05-25 07:29] LABS: Ferritin 41 ng/mL (10-120)
[2019-05-25] MEDS: Divalproex Sodium 125 MG CAPSULE PO SCH (08:54)
[2019-05-25] MEDS: Lactulose Oral Soln 20 GM/30 ML UDC PO SCH ×3 (08:54→21:38)
[2019-05-25] MEDS ORDERED: traMADol 50 MG TABLET PO PRN (08:58)
[2019-05-25] MEDS ORDERED: Acetaminophen 325 MG TABLET PO PRN (08:58)
[2019-05-25] MEDS ORDERED: Naloxone 0.4 MG/ML INJ IVP PRN (08:58)
[2019-05-25] MEDS: *HR* OxyCODONE Immed Rel 5 MG TABLET PO PRN (10:04)
[2019-05-25 11:48] LABS: Hematocrit 26.4 % (35.3-44.9); Hemoglobin 8.5 g/dL (11.5-15.4)
[2019-05-25] MEDS ORDERED: Piperacillin/Tazobactam 3.375 GM in 0.9 % Sodium Chloride Mini Bag 100 ML IVPB SCH (14:00)
[2019-05-25] MEDS ORDERED: Piperacillin/Tazobactam 3.375 GM VIAL ONE (15:11)
[2019-05-25] MEDS: Piperacillin/Tazobactam 3.375 GM in 0.9 % Sodium Chloride Mini Bag 100 ML IVPB SCH (15:40)
[2019-05-25 17:21] LABS: Hemoglobin 8.8 g/dL (11.5-15.4)
[2019-05-26] MEDS: Piperacillin/Tazobactam 3.375 GM in 0.9 % Sodium Chloride Mini Bag 100 ML IVPB SCH ×4 (00:52→23:39)
[2019-05-26] MEDS: *HR* OxyCODONE Immed Rel 5 MG TABLET PO PRN ×2 (01:59→14:59)
[2019-05-26 04:47] LABS: Hematocrit 25.8 % (35.3-44.9); Hemoglobin 8.2 g/dL (11.5-15.4); Mean Corpuscular HGB Conc 31.8 g/dL (31.6-35.5); Mean Corpuscular Hemoglobin 28.8 pg (28.0-33.3); Mean Corpuscular Volume 90.5 fL (83.0-100.0); Mean Platelet Volume 10.3 fL (9.4-12.4); Platelet Count 204 K/mcL (140-400); Red Blood Count 2.85 M/mcL (3.82-4.97); Red Cell Distribution Width 12.6 % (11.5-14.5); White Blood Count 10.9 K/mcL (4.3-11.1)
[2019-05-26 05:01] LABS: BUN/Creatinine Ratio 16 (6-26); Blood Urea Nitrogen 14 mg/dL (8-23); Calcium 8.9 mg/dL (8.6-10.3); Carbon Dioxide 27 mEq/L (23-29); Chloride 105 mEq/L (98-107); Glucose 151 mg/dL (70-105); Osmolality,Calculated 291 (280-300); Potassium 3.8 mEq/L (3.5-5.1); Sodium 139 mEq/L (136-145); eGFR For African Americans > 60 (> 60); eGFR For Non-African Americans > 60 (> 60)
[2019-05-26] MEDS: Lactulose Oral Soln 20 GM/30 ML UDC PO SCH ×3 (09:51→20:51)
[2019-05-26] MEDS: Divalproex Sodium 125 MG CAPSULE PO SCH (09:51)
[2019-05-26] MEDS: Iron Sucrose Complex 250 MG in 0.9 % Sodium Chloride 250 ML IVPB SCH (09:56)
[2019-05-27 05:52] LABS: Hematocrit 27.9 % (35.3-44.9); Hemoglobin 9.2 g/dL (11.5-15.4)
[2019-05-27] MEDS: Iron Sucrose Complex 250 MG in 0.9 % Sodium Chloride 250 ML IVPB SCH (08:06)
[2019-05-27] MEDS: Lactulose Oral Soln 20 GM/30 ML UDC PO SCH ×2 (08:07→13:41)
[2019-05-27] MEDS: Divalproex Sodium 125 MG CAPSULE PO SCH (08:07)
[2019-05-27] MEDS: Piperacillin/Tazobactam 3.375 GM in 0.9 % Sodium Chloride Mini Bag 100 ML IVPB SCH (10:05)
[2019-05-27] MEDS: *HR* OxyCODONE Immed Rel 5 MG TABLET PO PRN (12:59)
[2019-05-27 14:23] VITALS: BP 139/81
== END 2019-05-27 15:59 ==
LOC: EMEROOARM 17:16 → 3NENU 17:16 → SUATTDRO 21:28 → 3NENU 22:36
PROVIDERS: ADMIT Internal Medicine; ATTEND Student in an Organized Health Care Education/Training Program